=== PATIENT | male | born 2000 | race Caucasian/White ===

== ENCOUNTER 2021-03-05 12:37 | Emergency (ER) | payer OTHER ==
--- OUTSIDE RECORDS SUMMARY | 2021-03-05 12:40 | XMS REPORT | Continuity of Care Document ---
:2000 Author Organization [facility] t Address [address] [place] [address] Care Team Providers Name Role Phone Asked, Pcp Primary Care Physician Unavailable Problems Condition Condition Condition Status Onset Resolution Last Treating Co mments Source Name Details Category Date Date Treatment Clinician Date Behavior Behavior Problem [facility] - concern in concern in Me moria biological biological l child [facility] Bipolar Bipolar Problem Active [facility] affective affective [facility] - disorder, disorder, James luda remission remission l status status [facility] Clinics Depression Depression Problem Active [facility] with with [facility] - anxiety anxiety Memoria l [facility] Insomnia, Insomnia, Problem Active [facility] unspecifie unspecifie Mckenzie kes - d type d type Memoria l [facility] Bipolar Bipolar Problem Active [facility] depression depression Mckenzie kes - Memoria l [facility] Depression Depression Problem [facility] - [facility] Seasonal Seasonal Problem Active [facility] allergies allergies Luke [facility] - [facility] Migraines Migraines Problem [facility] Allergies, Adverse Reactions, Alerts This patient has no known allergies or adverse reactions. Social History Social Habit Start Date Stop Date Quantity Comments Source Sex Assigned At [birth year] [facility] 00:00:00 00:00:00 Smoking Status Start Date Stop Date Source [facility] Ordered Filled Start Stop Current Ordering Indication Dosage Frequency Signature Comments Components Source Medication Medication Date Date Medication? Clinician (SIG) Name Name Trazodone Trazodone 2019-0 Yes Patrizia 1-[address] HCl HCl 4-04 Flores tablets at [facility] - 00:[facility]: bedtime as Memoria 00 needed for l [facility] No known No [facility] Procedures This patient has no known procedures. Plan of Care Planned Activity Planned Date Details Comments Source Future Scheduled Test COVID-19 VACCINE (1) [facility] [code = COVID-19 VACCINE (1)] Future Scheduled Test INFLUENZA VACCINE [facility] [code = INFLUENZA VACCINE] Encounters Start End Encounter Admission Attending Care Care Encounter Source Date/Time Date/Time Type Type Clinicians Facility Department ID 2019-10-12 2019-10-12 [facility] [id number] [facility] 08:55:00 08:55:00 [facility] Medicine Outpati ent Clinics 2019-10-09 2019-10-09 [facility] [id number] 13:20:00 13:20:00 [facility] Medicine Outpati ent Clinics 2019-10-09 2019-10-09 [facility] [id number] 10[facility]59:00 10:59:00 [facility] Medicine Outpati ent Clinics 2018-10-08 2018-10-08 [facility] [id number] [address] 14:40:00 14:40:00 [facility] Medicine Outpati ent Clinics 2018-09-25 2018-09-25 [facility] [id number] [address] 23:46:00 23:46:00 [facility] Medicine Outpati ent Clinics 2018-09-25 2018-09-25 [facility] [id number] 15:20:00 15:20:00 [facility] Medicine Outpati ent Clinics Results This patient has no known results.
--- NOTE | 2021-03-05 13:00 | ER ---
Nurse's Notes [facility] Name: Eduardo Mullins Age: 20 yrs Sex: Male : 2000 Arrival Date: 03/05/2021 Time: 12:39 Bed 23 Private MD: Diagnosis: Dental pain Presentation: 03/05 12:44 Chief complaint: Patient states: Dental pain that began 3-4 days ago. Pt states he has hb a chipped tooth that may be the cause of pain. Coronavirus screen: Client denies travel out of the [place] in the last 14 days. Ebola Screen: Patient denies exposure to infectious person. Patient denies travel to an Ebola-affected area in the 21 days before illness onset. Initial Sepsis Screen: Does the patient meet any 2 criteria? No. Patient's initial sepsis screen is negative. Does the patient have a suspected source of infection? No. Patient's initial sepsis screen is negative. Risk Assessment: Do you want to hurt yourself or someone else? Patient reports no desire to harm self or others. Onset of symptoms was March 01, 2021. 12:44 Method Of Arrival: Ambulatory hb 12:44 Acuity: LEXX 5 hb Triage Assessment: 13:13 General: Appears in no apparent distress. Behavior is calm, cooperative, appropriate kg for age, quiet. Historical: - Allergies: 12:45 No Known Allergies; hb - Home Meds: 12:45 None [Active]; hb - PMHx: 12:45 None; hb - PSHx: 12:45 None; hb - Immunization history:: Client reports having NOT received the Covid vaccine. - Social history:: Smoking status: Reported history of juuling and/or vaping. Screenin:11 Abuse screen: Denies threats or abuse. Denies injuries from another. Nutritional ss screening: No deficits noted. Tuberculosis screening: Never had TB. Fall Risk None identified. Assessment: 13:13 Pain: Complains of pain in mouth and lower right second molar. kg Vital Signs: 12:44 Resp 16; Weight 57.61 kg; Height 5 ft. 10 in. (177.80 cm); Pain 10/10; hb 12:46 BP 143 / 92; Pulse 95; Temp 97.6(O); Pulse Ox 100% on R/A; hb 13:05 BP 137 / 80; Pulse 70; Resp 16; Pulse Ox 98% ; kg 12:44 Body Mass Index 18.22 (57.61 kg, 177.80 cm) hb ED Course: 12:39 Patient arrived in ED. ds1 12:45 Triage completed. hb 12:45 Arm band placed on right wrist. hb 12:54 Nick Tineo NP is PHCP. pm1 12:54 Dagoberto Saenz MD is Attending Physician. pm1 13:11 Patient has correct armband on for positive identification. Bed in low position. Call light in reach. 13:13 Xin Bedolla, RN is Primary Nurse. kg 13:13 No provider procedures requiring assistance completed. Patient did not have IV access kg during this emergency room visit. Administered Medications: 13:11 Drug: [place] (HYDROcodone-acetaminophen) 5 mg-325 mg 1 tabs Route: PO; vg1 13:14 Follow up: Response: No adverse reaction kg Outcome: 13:00 Discharge ordered by MD. pm1 13:14 Discharged to home ambulatory. kg 13:14 Condition: good 13:14 Discharge instructions given to patient, Instructed on discharge instructions, follow up and referral plans. Demonstrated understanding of instructions, follow-up care, medications, Prescriptions given X 2. 13:14 Patient left the ED. kg Signatures: Sydnee Mcgregor ds1 Venessa Santoyo, MERCEDEZ NEWSOME Nick Tineo NP MANAGER PLAY pm1 Alessandra Mckeon RN RN hb Garcia, Victoria, RN RN vg1 Xin Bedolla RN RN kg
--- NOTE | 2021-03-05 13:00 | EDPHYS ---
Physician Documentation [facility] Name: Eduardo Mullins Age: 20 yrs Sex: Male : 2000 Arrival Date: 03/05/2021 Time: 12:39 Bed 23 Private MD: ED Physician Dagoberto Saenz HPI: 03/05 12:57 This 20 yrs old Male presents to ER via Ambulatory with complaints of Dental pm1 Pain -ear pain. 12:57 The patient presents with broken tooth/teeth. The problem is located in the lower right pm1 second molar. Onset: The symptoms/episode began/occurred 4 day(s) ago. Duration: The symptoms are continuous. Modifying factors: The symptoms are alleviated by nothing, the symptoms are aggravated by food. Associated signs and symptoms: Pertinent negatives: fever, inability to eat, swelling. Severity of symptoms: in the emergency department the symptoms are actually worse. The patient has not recently seen a physician, Missed his appointment a few days ago. Has appointment with dentist in 2 days. Patient has taken 3 doses of Augmentin 875 that he obtained from his mother. Historical: - Allergies: 12:45 No Known Allergies; hb - Home Meds: 12:45 None [Active]; hb - PMHx: 12:45 None; hb - PSHx: 12:45 None; hb - Immunization history:: Client reports having NOT received the Covid vaccine. - Social history:: Smoking status: Reported history of juuling and/or vaping. ROS: 13:07 Constitutional: Negative for fever, chills, and weight loss, Cardiovascular: Negative pm1 for chest pain, palpitations, and edema, Respiratory: Negative for shortness of breath, cough, wheezing, and pleuritic chest pain, Abdomen/GI: Negative for abdominal pain, nausea, vomiting, diarrhea, and constipation, MS/Extremity: Negative for injury and deformity, Skin: Negative for injury, rash, and discoloration, Neuro: Negative for headache, weakness, numbness, tingling, and seizure. 13:07 ENT: Positive for dental pain, ear pain. 13:07 All other systems are negative. Exam: 13:07 Constitutional: This is a well developed, well nourished patient who is awake, alert, pm1 and in no acute distress. Head/Face: Normocephalic, atraumatic. 13:07 Skin: Warm, dry with normal turgor. Normal color with no rashes, no lesions, and no evidence of cellulitis. MS/ Extremity: Pulses equal, no cyanosis. Neurovascular intact. Full, normal range of motion. 13:07 Eyes: Exam is negative for acute changes, Periorbital structures: appear normal, no acute changes, Pupils: no acute changes, Extraocular movements: no acute changes, Sclera: no acute changes, icterus, is not appreciated. 13:07 ENT: External ear(s): are unremarkable, Ear canal(s): are normal, TM's: are normal, Nose: no acute changes, Dental exam: dental caries, diffusely, Fracture is present to posterior aspect of right lower second molar. 13:07 Cardiovascular: Exam negative for acute changes, Rate: normal, Rhythm: regular, Pulses: no pulse deficits are appreciated. 13:07 Respiratory: Exam negative for acute changes, respiratory distress, shortness of breath, Breath sounds: are clear throughout. 13:07 Abdomen/GI: Exam negative for acute changes. Vital Signs: 12:44 Resp 16; Weight 57.61 kg; Height 5 ft. 10 in. (177.80 cm); Pain 10/10; hb 12:46 BP 143 / 92; Pulse 95; Temp 97.6(O); Pulse Ox 100% on R/A; hb 13:05 BP 137 / 80; Pulse 70; Resp 16; Pulse Ox 98% ; kg 12:44 Body Mass Index 18.22 (57.61 kg, 177.80 cm) hb MDM: 12:57 Patient medically screened. pm1 12:57 Data reviewed: vital signs. Data interpreted: Pulse oximetry: on room air is 100 %. pm1 Interpretation: normal. Counseling: I had a detailed discussion with the patient and/or guardian regarding: the historical points, exam findings, and any diagnostic results supporting the discharge/admit diagnosis, the need for outpatient follow up, for definitive care, a dentist, to return to the emergency department if symptoms worsen or persist or if there are any questions or concerns that arise at home. 13:05 ED course: PMPAware reviewed. pm1 Administered Medications: 13:11 Drug: [place] (HYDROcodone-acetaminophen) 5 mg-325 mg 1 tabs Route: PO; vg1 13:14 Follow up: Response: No adverse reaction kg Disposition: 16:15 Co-signature as Attending Physician, Dagoberto Saenz MD. rn Disposition Summary: 03/05/21 13:00 Discharge Ordered Location: Home pm1 Problem: new pm1 Symptoms: have improved pm1 Condition: Stable pm1 Diagnosis - Dental pain pm1 Followup: pm1 - With: Emergency Department - When: As needed - Reason: Worsening of condition Followup: pm1 - With: Private Physician - When: 2 - 3 days - Reason: Recheck today's complaints, Continuance of care, Re-evaluation by your physician Discharge Instructions: - Discharge Summary Sheet pm1 - Dental Pain pm1 Forms: - Medication Reconciliation Form pm1 - Thank You Letter pm1 - Antibiotic Education pm1 - Prescription Opioid Use pm1 Prescriptions: - Augmentin 875-125 mg Oral Tablet - take 1 tablet by ORAL route every 12 hours for 10 days; 20 tablet; Refills: 0, pm1 Product Selection Permitted - acetaminophen-codeine 300-15 mg Oral tablet - take 2 tablet by ORAL route every 6 hours As needed as needed; 12 tablet; pm1 Refills: 0, Product Selection Permitted Signatures: Dagoberto Saenz MD MD rn Marinas, Patrick, NP PACKAGING SPECIALIST pm1 Alessandra Mckeon RN RN Coral Bernard RN RN vg1 Xin Bedolla RN kg
[2021-03-05 13:21] VITALS: BP 143/92; TEMP 97.6; O2SAT 100
[2021-03-05] MEDS ORDERED: HYDROCODONE/APAP 5/325 MG TAB ONE (13:34)
== END 2021-03-05 13:14 | disposition home or self-care (01) ==
LOC: ER 12:37
DX: K08.89 Other specified disorders of teeth and supporting structures (principal)
CPT/HCPCS: 99283

== ENCOUNTER 2021-11-29 08:25 | Emergency (ER) | payer OTHER, SELFPAY ==
--- OUTSIDE RECORDS SUMMARY | 2021-11-29 08:28 | XMS REPORT | Continuity of Care Document ---
:2000 Author Organization [facility] t Address [address] [place] [address] Care Team Providers Name Role Phone Asked, Pcp Primary Care Physician Unavailable Trinh Attending Clinician Unavailable Lab, Fam Pob I Attending Clinician Unavailable Elina Coats Attending Clinician Elina SENIOR Attending Clinician Unavailable Doctor Unassigned, Name Attending Clinician Unavailable Payers Payer Name Policy Type Policy Number Effective Date Expiration Date S ource Problems Condition Condition Condition Status Onset Resolution Last Treating Co mments Source Name Details Category Date Date Treatment Clinician Date Convulsion Convulsion Disease Active Overview : Univers s s 3-31 ICD10 ity of 00:00: 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[employer] Allergic Allergic Disease Active Overview: Un vivian rhinitis rhinitis 3-31 ICD10 ity of 00:00: 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[employer] Behavior Behavior Problem Active Commo n causing causing [facility] concern in concern in - [facility] biological biological [facility] Bipolar Bipolar Problem Active Common affective affective Spir it disorder, disorder, - [facility] I remission remission [facility] unspecifie unspecifie Me dical d d Center Depression Depression [facility] anxiety anxiety - [facility] Insomnia, Insomnia, Problem Active Com mon unspecifie unspecifie Sp maria guadalupe d type d type [facility] Bipolar Bipolar Problem Active Common depression depression Sp maria guadalupe [facility] Depression Depression Problem Active C ommon [facility] Seasonal Seasonal Problem Active Commo n allergies allergies Spir it - [facility] Migraines Migraines Problem Active Com mon [facility] Allergies, Adverse Reactions, Alerts Allergy Allergy Status Severity Reaction(s) Onset Inactive Treating Comm ents Source Name Type Date Date Clinician NO KNOWN Drug Active Univers ALLERGIE Class ity of S [facility] Social History Social Habit Start Date Stop Date Quantity Comments Source Tobacco Comment father does Universi ty [facility] Sex Assigned At Universit y of [place] [facility] Branch Alcohol intake 2004-11-27 2004-11-27 [facility] 00:00:00 00:00:00 Medical Branch Smoking Status Start Date Stop Date Source Never smoker [facility] Medications Ordered Filled Start Stop Current Ordering Indication Dosage Frequency Signature Comments Components Source Medication Medication Date Date Medication? Clinician (SIG) Name Name Trazodone Trazodone Yes Patrizia 1-2 C ommon HCl HCl 4-04 Flores tablets at Spirit 00:00: bedtime as - [facility] 00 needed for [facility] aspirin 81 2014-06 Yes 81mg Take 81 mg U nivers mg chewable 1-30 by mouth ity of tablet 19:29: daily. [address] aspirin 81 2014-06 Yes 81mg Take 81 mg U nivers mg chewable 1-30 by mouth ity of tablet 19:29: daily. [address] cyclobenzap 2014-06 Yes 10mg Take 1 Tab Univers rine 1-30 by mouth 3 ity of ([place]) [place]: [place] 10 mg 00 times Medical tablet daily as Branch needed for Muscle Spasms. naproxen 2014-06 Yes 500mg Take 1 Tab Un vivian (NAPROSYN) 1-30 by mouth 2 ity of 500 mg 00:00: (two) [place] tablet 00 times Medical daily with Branch meals. cyclobenzap 2014-06 Yes 10mg Take 1 Tab Univers rine 1-30 by mouth 3 ity of ([place]ER[place]) 00:00: ([place] 10 mg 00 times Medical tablet daily as Branch needed for Muscle Spasms. naproxen 2014-06 Yes 500mg Take 1 Tab Un vivian (NAPROSYN) 1-30 by mouth 2 ity of 500 mg 00:00: (two) [place] tablet 00 times Medical daily with Branch meals. No known No [facility] Procedures This patient has no known procedures. Plan of Care Planned Activity Planned Date Details Comments Source Future Scheduled Test COVID-19 VACCINE (1) [facility] [code = COVID-19 VACCINE (1)] Future Scheduled Test INFLUENZA VACCINE [facility] [code = INFLUENZA VACCINE] Encounters Start End Encounter Admission Attending Care Care Encounter Source Date/Time Date/Time Type Type Clinicians Facility Department ID 2021-07-19 Outpatient TERI Tsang [facility] [id number] Common 12:19:49 Jaimie [id number] [facility] 2020-06-30 2020-06-30 Laboratory Lab, Adc Fam Pob I [facility] [id number] Univers 16:56:24 17:16:24 Only Lester [facility] [id number] ity of [place] [id number] Zeke as Professio [id number] [address] Office Building One 2020-06-30 2020-06-30 Outpatient R NADEEN [facility] [id number] Univers 17:00:00 17:00:00 LETSER matthews o f [facility] 2020-06-30 2020-06-30 Letter Doctor DINO [id number] [place] [address] 00:00:00 00:00:00 (Out) Unassigned, DANILO [id number] ity of [place] [facility] [id number] Zeke as [id number] [address] 2019-10-12 2019-10-12 [facility] [id number] Common 08:55:00 08:55:00 [facility] [address] [facility] 2019-10-09 2019-10-09 [facility] [id number] Common 13:20:00 13:20:00 [facility] [address] [facility] 2019-10-09 2019-10-09 [facility] [id number] Common 10:59:00 10:59:00 [facility] [address] [facility] 2018-10-08 2018-10-08 [facility] [id number] Common 14:40:00 14:40:00 [facility] [address] [facility] 2018-09-25 2018-09-25 Outpatient Chacha Dai [id number] Common 23:46:00 23:46:00 [facility] it [facility] 2018-09-25 2018-09-25 Outpatient Chacha Dai [id number] Common 15:20:00 15:20:00 [facility] it [facility] Results This patient has no known results.
--- NOTE | 2021-11-29 11:07 | ER ---
Nurse's Notes [facility] Name: Eduardo Mullins Age: 21 yrs Sex: Male : 2000 Arrival Date: 11/29/2021 Time: 08:28 Bed 14 Private MD: Diagnosis: Acute upper respiratory infection, unspecified Presentation: 11/29 08:35 Acuity: LEXX 4 ll1 08:36 Chief complaint: Patient states: Feeling ill, sleepy, fatigues, not eating, slight ll1 cough, CORONADO cold sweats for 2 days. Coronavirus screen: Vaccine status: Patient reports being unvaccinated. Client denies travel out of the [place] in the last 14 days. fatigue, fever, headache, muscle pain, Client presents with at least one sign or symptom that may indicate coronavirus-19. Standard/surgical mask placed on the client. Ebola Screen: Patient denies travel to an Ebola-affected area in the 21 days before illness onset. Initial Sepsis Screen: Does the patient meet any 2 criteria? No. Patient's initial sepsis screen is negative. Does the patient have a suspected source of infection? Yes: Productive cough/pneumonia. Risk Assessment: Do you want to hurt yourself or someone else? Patient reports no desire to harm self or others. Onset of symptoms was November 27, 2021. 08:36 Method Of Arrival: Ambulatory ll1 Triage Assessment: 08:36 General: Appears ill, Behavior is cooperative, appropriate for age. Pain: Complains of ll1 pain in head Pain currently is 5 out of 10 on a pain scale. Pain began 2-3 days ago. Also complains of decreased appetite. EENT: Reports nasal congestion. Neuro: Reports headache. Respiratory: Reports cough that is. 09:02 Headache History: Denies prior headaches. Pain: Complains of pain in head Pain jg9 currently is 7 out of 10 on a pain scale. Historical: - Allergies: 08:35 No Known Allergies; ll1 - PMHx: 08:35 None; ll1 - PSHx: 08:35 None; ll1 - Immunization history:: Client reports having NOT received the Covid vaccine. - Social history:: Smoking status: Reported history of juuling and/or vaping. Screenin:02 Abuse screen: Denies threats or abuse. Denies injuries from another. Nutritional jg9 screening: No deficits noted. Tuberculosis screening: No symptoms or risk factors identified. Fall Risk None identified. Assessment: 09:02 Reassessment: No changes from previously documented assessment. Patient and/or family jg9 updated on plan of care and expected duration. Pain level reassessed. Patient is alert, oriented x 3, equal unlabored respirations, skin warm/dry/pink. 09:41 Reassessment: No changes from previously documented assessment. Patient and/or family jg9 updated on plan of care and expected duration. Pain level reassessed. Patient is alert, oriented x 3, equal unlabored respirations, skin warm/dry/pink. Pain: Complains of pain in head Pain currently is 7 out of 10 on a pain scale. Vital Signs: 08:36 BP 126 / 89; Pulse 68; Resp 17; Temp 98.6; Pulse Ox 96% on R/A; Weight 61.23 kg; Height ll1 5 ft. 10 in. (177.80 cm); Pain 5/10; 08:45 BP 119 / 79; Pulse 93; Resp 16 S; Pulse Ox 100% on R/A; jg9 08:36 Body Mass Index 19.37 (61.23 kg, 177.80 cm) ll1 ED Course: 08:28 Patient arrived in ED. mr 08:30 Helen Nichols, [place] [facility] kb 08:30 Roman Alex DO is Attending Physician. kb 08:30 Velia Yancey, RN is Primary Nurse. jg9 08:35 Triage completed. ll1 08:35 Arm band placed on Patient placed in an exam room, on a stretcher. ll1 09:03 Pt visited by significant other. jg9 09:03 Patient has correct armband on for positive identification. Bed in low position. Call jg9 light in reach. 09:41 No apparent distress. Resting quietly. Awaiting lab results, Awaiting disposition. jg9 11:18 No provider procedures requiring assistance completed. Patient did not have IV access ss during this emergency room visit. Administered Medications: No medications were administered Medication: 09:03 VIS not applicable for this client. jg9 Outcome: 11:07 Discharge ordered by . kb 11:18 Discharged to home ambulatory. ss 11:18 Condition: good 11:18 Discharge instructions given to patient, Instructed on discharge instructions, follow up and referral plans. Demonstrated understanding of instructions, follow-up care. 11:20 Patient left the ED. Signatures: Helen Nichols, [place] LOMELI-Michaela Aguiar mr Venessa Santoyo, RN RN ss Ankita Aragon RN RN ll1 Velia Yancey RN RN jg9
--- NOTE | 2021-11-29 11:07 | EDPHYS ---
Physician Documentation [facility] Name: Eduardo Mullins Age: 21 yrs Sex: Male : 2000 Arrival Date: 11/29/2021 Time: 08:28 Bed 14 Private MD: ED Physician Roman Alex HPI: 11/29 09:15 This 21 yrs old Male presents to ER via Ambulatory with complaints of Headache, Sore kb Throat. 09:15 The patient or guardian reports cough, that is intermittent, described as mild, flu kb symptoms, low-grade fever, myalgias. Onset: The symptoms/episode began/occurred 2 day(s) ago. Severity of symptoms: At their worst the symptoms were moderate, in the emergency department the symptoms are unchanged. Modifying factors: The symptoms are alleviated by nothing, the symptoms are aggravated by nothing. Associated signs and symptoms: Pertinent positives: rhinorrhea, sore throat. The patient has not experienced similar symptoms in the past. The patient has not recently seen a physician. Pt reports slight cough, bodyaches, chills, sweating, sore throat, and congestion for 2 days. . Historical: - Allergies: 08:35 No Known Allergies; ll1 - PMHx: 08:35 None; ll1 - PSHx: 08:35 None; ll1 - Immunization history:: Client reports having NOT received the Covid vaccine. - Social history:: Smoking status: Reported history of juuling and/or vaping. ROS: 09:13 Abdomen/GI: Negative for abdominal pain, nausea, vomiting, diarrhea, and constipation. kb 09:13 Constitutional: Positive for body aches, chills, fatigue, fever, malaise. 09:13 ENT: Positive for sinus congestion, sore throat. 09:13 Respiratory: Positive for cough, Negative for dyspnea on exertion, hemoptysis, orthopnea, pleurisy, shortness of breath, sputum production, wheezing. 09:13 Neuro: Positive for headache. 09:13 All other systems are negative. Exam: 09:14 Constitutional: This is a well developed, well nourished patient who is awake, alert, kb and in no acute distress. Head/Face: Normocephalic, atraumatic. Cardiovascular: Regular rate and rhythm with a normal S1 and S2. No gallops, murmurs, or rubs. No pulse deficits. Respiratory: Respirations even and unlabored. No increased work of breathing. Talking in full sentences Skin: Warm, dry with normal turgor. Normal color. MS/ Extremity: Pulses equal, no cyanosis. Neurovascular intact. Full, normal range of motion. Neuro: Awake and alert, GCS 15, oriented to person, place, time, and situation. Moves all extremities. Normal gait. Psych: Awake, alert, with orientation to person, place and time. Behavior, mood, and affect are within normal limits. 09:14 ENT: External ear(s): are unremarkable, Ear canal(s): are normal, TM's: are normal, Nose: is normal, Mouth: is normal, Posterior pharynx: Airway: normal, erythema, that is moderate. Vital Signs: 08:36 BP 126 / 89; Pulse 68; Resp 17; Temp 98.6; Pulse Ox 96% on R/A; Weight 61.23 kg; Height ll1 5 ft. 10 in. (177.80 cm); Pain 5/10; 08:45 BP 119 / 79; Pulse 93; Resp 16 S; Pulse Ox 100% on R/A; jg9 08:36 Body Mass Index 19.37 (61.23 kg, 177.80 cm) ll1 MDM: 08:30 Patient medically screened. kb 09:14 Data reviewed: vital signs, nurses notes. Data interpreted: Pulse oximetry: on room air kb is 100 %. Interpretation: normal. 11:07 Counseling: I had a detailed discussion with the patient and/or guardian regarding: the kb historical points, exam findings, and any diagnostic results supporting the discharge/admit diagnosis, lab results, the need for outpatient follow up, a family practitioner, to return to the emergency department if symptoms worsen or persist or if there are any questions or concerns that arise at home. 11/29 08:33 Order name: Flu; Complete Time: 09:41 kb 11/29 08:33 Order name: COVID-19 SARS RT PCR (Document "Date of Onset" if Symptomatic); Complete kb Time: 11:06 08 08:33 Order name: Strep; Complete Time: 09:41 kb 11/29 09:41 Order name: Throat Culture EDMS Administered Medications: No medications were administered Disposition: 22:25 Co-signature as Attending Physician, Roman Alex DO I was immediately available on-site ms3 in the Emergency Department for consultation in the care of the patient. . Disposition Summary: 11/29/21 11:07 Discharge Ordered Location: Home kb Condition: Stable kb Diagnosis - Acute upper respiratory infection, unspecified kb Followup: kb - With: Emergency Department - When: As needed - Reason: Worsening of condition Followup: kb - With: Private Physician - When: 2 - 3 days - Reason: Recheck today's complaints, Continuance of care, Re-evaluation by your physician Discharge Instructions: - Discharge Summary Sheet kb - Upper Respiratory Infection, Adult, [id number] kb - Viral Respiratory Infection, [id number] kb Forms: - Medication Reconciliation Form kb - Thank You Letter kb - Antibiotic Education kb - Prescription Opioid Use kb - Work release form ss Signatures: Dispatcher [employer] Helen Guzman, DAYTON LOMELI-Ankita Hammond RN RN ll1 Roman Alex DO DO ms3
[2021-11-29 11:25] VITALS: TEMP 98.6
[2021-11-29 11:26] VITALS: BP 119/79; O2SAT 100
== END 2021-11-29 11:20 | disposition home or self-care (01) ==
LOC: ER 08:25
DX: J06.9 Acute upper respiratory infection, unspecified (principal); R05.9 Cough, unspecified; Z20.822 Contact with and (suspected) exposure to COVID-19
CPT/HCPCS: 87070; 87081; 87804; 99281; U0003

== ENCOUNTER 2022-02-02 13:50 | Emergency (ER) | payer SELFPAY ==
--- OUTSIDE RECORDS SUMMARY | 2022-02-02 13:53 | XMS REPORT | Continuity of Care Document ---
:[address] [facility] t Address [address] [place] [address] Care Team Providers Name Role Phone Asked, No Pcp Primary Care Physician Unavailable Jaimie Tsang Attending Clinician Unavailable Lab, Adc Fam Pob I Attending Clinician Unavailable Lester Coats Attending Clinician LESTER SENIOR Attending Clinician Unavailable Doctor Unassigned, [place] Attending Clinician Unavailable Payers Payer Name Policy Type Policy Number Effective Date Expiration Date S ource Problems Condition Condition Condition Status Onset Resolution Last Treating Co mments Source Name Details Category Date Date Treatment Clinician Date Convulsion Convulsion Disease Active Overview : Univers s s 3- ICD10 ity of 00:00: Diagnosis [place] [facility] [employer] Allergic Allergic Disease Active Overview: Un vivian rhinitis rhinitis 09-21 ICD10 ity of 00:00: Diagnosis [employer] Behavior Behavior Problem Active Commo n causing causing Spirit concern in concern in - [facility] biological biological [facility] Bipolar Bipolar Problem Active Common affective affective Spir it disorder, disorder, - [facility] I remission remission [facility] unspecifie unspecifie Me dical d d Center Depression Depression Problem Active C ommon with with Spirit anxiety anxiety - [facility] Insomnia, Insomnia, Problem Active Com mon unspecifie unspecifie Sp maria guadalupe d type d type [facility] Bipolar Bipolar Problem Active Common depression depression Sp maria guadalupe [facility] Depression Depression Problem Active C ommon Spirit [facility] Seasonal Seasonal Problem Active Commo n allergies allergies Spir it [facility] Migraines Migraines Problem Active Com mon Spirit [facility] Allergies, Adverse Reactions, Alerts Allergy Allergy Status Severity Reaction(s) Onset Inactive Treating Comm ents Source Name Type Date Date Clinician NO KNOWN Drug Active Univers ALLERGIE Class ity of S [facility] Social History Social Habit Start Date Stop Date Quantity Comments Source Tobacco Comment father does Universi ty [facility] Sex Assigned At Universit y [facility] Alcohol intake 2004-11-27 2004-11-27 [facility] 00:00:00 00:00:00 [facility] Branch Smoking Status Start Date Stop Date Source Never smoker [facility] Medications Ordered Filled Start Stop Current Ordering Indication Dosage Frequency Signature Comments Components Source Medication Medication Date Date Medication? Clinician (SIG) Name Name Trazodone Trazodone 2019- Yes Patrizia 1-2 C ommon HCl HCl 4-04 Flores tablets at Spirit 00:00: bedtime as - [facility] 00 needed for [facility] aspirin 81 2014-06 Yes 81mg Take 81 mg U nivers mg chewable 1-30 by mouth ity of tablet 19:29: daily. [address] aspirin 81 2014-06 Yes 81mg Take 81 mg U nivers mg chewable 1-30 by mouth ity of tablet 19:29: daily. [address] cyclobenzap 2014-06 Yes 10mg Take 1 [...] Source Future Scheduled Test COVID-19 VACCINE (1) [facility] [code = COVID-19 VACCINE (1)] Future Scheduled Test INFLUENZA VACCINE [facility] [code = INFLUENZA VACCINE] Encounters Start End Encounter Admission Attending Care Care Encounter Source Date/Time Date/Time Type Type Clinicians Facility Department ID 2021-07-19 Outpatient TERI Tsang [facility] [id number] Common 12:19:49 Jaimie [id number] [facility] 2020-06-30 2020-06-30 Laboratory Lab, Adc Fam Pob I [facility] [id number] Univers 16:56:24 17:16:24 Only NadeenLester whitney [facility] [id number] ity of [place] [id number] Zeke as Professio [id number] [address] Office Building One 2020-06-30 2020-06-30 Outpatient R NADEEN [facility] [id number] Univers 17:00:00 17:00:00 LESTER matthews o f [facility] 2020-06-30 2020-06-30 Letter Doctor DINO [id number] Univers 00:00:00 00:00:00 (Out) Unassigned, DANILO [id number] ity of [place] [facility] [id number] Zeke as [id number] [address] 2019-10-12 2019-10-12 [facility] [id number] Common 08:55:00 08:55:00 [facility] [address] [facility] 2019-10-09 2019-10-09 [facility] [id number] Common 13:20:00 13:20:00 [facility] [address] [facility] 2019-10-09 2019-10-09 [facility] [id number] Common 10:59:00 10:59:00 [facility] [address] [facility] 2018-10-08 2018-10-08 [facility] [id number] Common 14:40:00 14:40:00 [facility] Spir it [facility] 2018-09-25 2018-09-25 Outpatient Chacha Dai [id number] Common 23:46:00 23:46:00 [facility] 2018-09-25 2018-09-25 Outpatient Chacha Dai [id number] Common 15:20:00 15:20:00 [facility] Results This patient has no known results.
--- NOTE | 2022-02-02 14:19 | ER ---
Nurse's Notes [facility] Name: Eduardo Mullins Age: 21 yrs Sex: Male : 2000 Arrival Date: 02/02/2022 Time: 13:50 Bed 12 Private MD: Diagnosis: Dental caries, unspecified Presentation: 02/02 14:01 Chief complaint: Patient states: pt presents with swelling and pain to right side of [facility] face due to abscess that has been ongoing for a year; pt states he was supposed to get root canal a year ago but couldn't afford it. Coronavirus screen: Vaccine status: Patient reports being unvaccinated. Client denies travel out of the [place] in the last 14 days. Ebola Screen: Patient negative for fever greater than or equal to 101.5 degrees Fahrenheit, and additional compatible Ebola Virus Disease symptoms Patient denies exposure to infectious person. Patient denies travel to an Ebola-affected area in the 21 days before illness onset. Initial Sepsis Screen: Does the patient meet any 2 criteria? No. Patient's initial sepsis screen is negative. Does the patient have a suspected source of infection? No. Patient's initial sepsis screen is negative. Risk Assessment: Do you want to hurt yourself or someone else? Patient reports no desire to harm self or others. Onset of symptoms was January 2021. 14:01 Method Of Arrival: Ambulatory [facility] 14:01 Acuity: LEXX 4 [facility] Triage Assessment: 14:04 General: Appears uncomfortable, slender, Behavior is calm, cooperative, appropriate for [facility] age. Pain: Complains of pain in face. EENT: Reports pain in right cheek, right ear, mouth, chin, right muslim and right jaw when swallowing. Historical: - Allergies: 14:04 No Known Allergies; [facility] - Home Meds: 14:04 None [Active]; [facility] - Immunization history:: Adult Immunizations up to date. - Social history:: Smoking status: Patient reports the use of cigarette tobacco products, Patient/guardian denies using tobacco, Stopped _ months ago 4. Screenin:05 Abuse screen: Denies threats or abuse. Denies injuries from another. Nutritional [facility] screening: No deficits noted. Tuberculosis screening: No symptoms or risk factors identified. Fall Risk None identified. Assessment: 14:25 General: Appears in no apparent distress. comfortable, Behavior is calm, cooperative. ss Pain: Complains of pain in right jaw and right muslim and right ear and right cheek Pain currently is 10 out of 10 on a pain scale. Neuro: Level of Consciousness is awake, alert, obeys commands, Oriented to person, place, time, situation. Respiratory: Airway is patent Respiratory effort is even, unlabored, Respiratory pattern is regular, symmetrical. EENT: Poor dentition noted. Derm: Skin is pink, warm \T\ dry. normal. Vital Signs: 14:01 BP 116 / 84; Pulse 83; Resp 18; Temp 97.5; Pulse Ox 100% ; Weight 61.23 kg; Height 5 [facility] ft. 10 in. (177.80 cm); Pain 10/10; 14:01 Body Mass Index 19.37 (61.23 kg, 177.80 cm) [facility] ED Course: 13:50 Patient arrived in ED. 4 13:55 Dalton [facility] 13:55 Mac Abdi MD is Attending Physician. [facility] 14:04 Triage completed. [facility] 14:04 Arm band placed on right wrist. [facility] 14:25 Venessa Santoyo, MERCEDEZ is Primary Nurse. 14:25 Patient has correct armband on for positive identification. 14:25 No provider procedures requiring assistance completed. Patient did not have IV access ss during this emergency room visit. Administered Medications: No medications were administered Medication: 14:25 VIS not applicable for this client. ss Outcome: 14:18 Discharge ordered by . [facility] 14:25 Discharged to home ambulatory. 14:25 Condition: good 14:25 Discharge instructions given to patient, Instructed on discharge instructions, follow up and referral plans. medication usage, Demonstrated understanding of instructions, follow-up care, medications, Prescriptions given X 2. 14:28 Patient left the ED. Signatures: Dalton Fiore PA PA jmm Smirch, Shelby, RN RN ss Garcia, Rubi 4 Marly Diaz RN RN [facility]
--- NOTE | 2022-02-02 14:19 | EDPHYS ---
Physician Documentation [facility] Name: Eduardo Mullins Age: 21 yrs Sex: Male : 2000 Arrival Date: 02/02/2022 Time: 13:50 Bed 12 Private MD: ED Physician Mac Abdi HPI: 02/02 14:10 This 21 yrs old Male presents to ER via Ambulatory with complaints of Toothache. [facility] 14:10 The patient presents with pain. Onset: The symptoms/episode began/occurred gradually, 2 jmm day(s) ago. Duration: The symptoms are continuous, and are steadily getting worse. Modifying factors: The symptoms are alleviated by nothing, the symptoms are aggravated by nothing. Associated signs and symptoms: Pertinent positives: pain, redness in area. It is unknown whether or not the patient has had similar symptoms in the past. Historical: - Allergies: 14:04 No Known Allergies; [facility] - Home Meds: 14:04 None [Active]; [facility] - Immunization history:: Adult Immunizations up to date. - Social history:: Smoking status: Patient reports the use of cigarette tobacco products, Patient/guardian denies using tobacco, Stopped _ months ago 4. ROS: 14:10 Constitutional: Negative for fever, chills, and weight loss. jm 14:10 ENT: Positive for dental pain. 14:10 All other systems are negative. Exam: 14:10 Constitutional: This is a well developed, well nourished patient who is awake, alert, jmm and in no acute distress. Head/Face: atraumatic. Eyes: EOMI, no conjunctival erythema appreciated 14:10 Chest/axilla: Normal chest wall appearance and motion. Cardiovascular: Regular rate and rhythm. No edema appreciated Respiratory: Normal respirations, no respiratory distress appreciated Abdomen/GI: Non distended Back: Normal ROM Skin: General appearance color normal MS/ Extremity: Moves all extremities, no obvious deformities appreciated, no edema noted to the lower extremities Neuro: Awake and alert Psych: Behavior is normal, Mood is normal, Patient is cooperative and pleasant 14:10 ENT: Dental exam: gum swelling, that is moderate, specifically in the lower right first molar (#30) and lower right second molar (#31), No submandibular swelling appreciated. Vital Signs: 14:01 BP 116 / 84; Pulse 83; Resp 18; Temp 97.5; Pulse Ox 100% ; Weight 61.23 kg; Height 5 [facility] ft. 10 in. (177.80 cm); Pain 10/; 14:01 Body Mass Index 19.37 (61.23 kg, 177.80 cm) [facility] MDM: 14:10 Patient medically screened. [facility] 14:18 Data reviewed: vital signs, nurses notes. Counseling: I had a detailed discussion with savanah the patient and/or guardian regarding: the historical points, exam findings, and any diagnostic results supporting the discharge/admit diagnosis, the need for outpatient follow up, to return to the emergency department if symptoms worsen or persist or if there are any questions or concerns that arise at home. 14:18 ED course: Patient is alert nontoxic in appearance in the ED. I do not currently [facility] suspect North's angina or peritonsillar abscess or retropharyngeal abscess at this time. Patient advised follow-up with dentist and otherwise given strict return precautions. Patient understood and agrees to plan of care.. Administered Medications: No medications were administered Disposition: 15:17 Attestation: The patient's history, exam findings, diagnostics, and a summary of any [facility] interventions or procedures was reviewed in detail with Dalton ELDER. Disposition Summary: 02/02/22 14:18 Discharge Ordered Location: Home [facility] Condition: Stable [facility] Diagnosis - Dental caries, unspecified [facility] Followup: [facility] - With: Private Physician - When: 2 - 3 days - Reason: Recheck today's complaints, Continuance of care, Re-evaluation by your physician Discharge Instructions: - Discharge Summary Sheet [facility] - Dental Caries, Adult [facility] Forms: - Medication Reconciliation Form [facility] - Thank You Letter [facility] - Antibiotic Education [facility] - Prescription Opioid Use [facility] Prescriptions: - penicillin V potassium 500 mg Oral tablet - take 1 tablet by ORAL route 4 times per day; 40 tablet; Refills: 0, Product [facility] Selection Permitted - Diclofenac Sodium 75 mg Oral Tablet Sustained Release - take 1 tablet by ORAL route 2 times per day; 30 tablet; Refills: 0, Product [facility] Selection Permitted Signatures: Dalton Fiore PA PA jm Marly Diaz RN RN 5 Mac Abdi MD MD [id number]
[2022-02-02 14:57] VITALS: BP 116/84; TEMP 97.5; O2SAT 100
== END 2022-02-02 14:28 | disposition home or self-care (01) ==
LOC: ER 13:50
DX: K02.9 Dental caries, unspecified (principal)
CPT/HCPCS: 99282

== ENCOUNTER 2022-03-14 23:12 | Emergency (ER) | payer SELFPAY ==
--- OUTSIDE RECORDS SUMMARY | 2022-03-14 23:14 | XMS REPORT | Continuity of Care Document ---
:2000 Author Organization [facility] t Address [address] [place] [address] Care Team Providers Name Role Phone Jaimie Tsagn Attending Clinician Unavailable Problems Condition Condition Condition Status Onset Resolution Last Treating Co mments Source Name Details Category Date Date Treatment Clinician Date Behavior Behavior Problem Active Commo n causing causing Spirit concern in concern in - [facility] biological biological [facility] Bipolar Bipolar Problem Active Common affective affective Spir it disorder, disorder, - [facility] I remission remission St status status [facility] unspecifie unspecifie Me dical d d [place] Depression Depression Problem Active C ommon with with Spirit anxiety anxiety [facility] Insomnia, Insomnia, Problem Active Com mon unspecifie unspecifie Sp maria guadalupe d type d type [facility] Bipolar Bipolar Problem Active Common depression depression Sp maria guadalupe [facility] Depression Depression Problem Active C ommon [facility] Seasonal Seasonal Problem Active Commo n allergies allergies Spir it [facility] Migraines Migraines Problem Active Com mon [facility] Allergies, Adverse Reactions, Alerts This patient has no known allergies or adverse reactions. Medications Ordered Filled Start Stop Current Ordering Indication Dosage Frequency Signature Comments Components Source Medication Medication Date Date Medication? Clinician (SIG) Name Name Trazodone Trazodone 2019-0 Yes Patrizia 1-2 C ommon HCl HCl 4-04 Flores tablets at Spirit 00:00: bedtime as - [facility] 00 needed for [facility] Procedures This patient has no known procedures. Encounters Start End Encounter Admission Attending Care Care Encounter Source Date/Time Date/Time Type Type Clinicians Facility Department ID 2021-07-19 Outpatient TERI Tsang MARGARITA [id number] Common 12:19:49 Jaimie [id number] [facility] 2019-10-12 2019-10-12 [facility] [id number] Common 08:55:00 08:55:00 t [facility] [address] [facility] 2019-10-09 2019-10-09 [facility] [id number] Common 13:20:00 13:20:00 t [facility] [address] [facility] 2019-10-09 2019-10-09 Out[facility] [id number] Common 10:59:00 10:59:00 t [facility] [address] [facility] 2018-10-08 2018-10-08 Out[facility] [id number] Common 14:40:00 14:40:00 t [facility] [address] [facility] 2018-09-25 2018-09-25 [facility] [id number] Common 23:46:00 23:46:00 t [facility] [address] [facility] 2018-09-25 2018-09-25 Out[facility] [id number] Common 15:20:00 15:20:00 t [facility] [address] [facility] Results This patient has no known results.
[2022-03-14] MEDS ORDERED: HYDROCODONE/APAP 7.5/325 MG TAB ONE (23:47)
[2022-03-14] MEDS ORDERED: IBUPROFEN 400 MG TAB ONE (23:48)
[2022-03-14] MEDS ORDERED: IBUPROFEN 200 MG TAB PO ONE (23:48)
--- NOTE | 2022-03-15 00:56 | EDPHYS ---
Physician Documentation [facility] Name: Eduardo Mullins Age: 21 yrs Sex: Male : 2000 Arrival Date: 03/14/2022 Time: 23:13 Bed 27 Private MD: ED Physician Roman Alex HPI: 03/14 23:35 This 21 yrs old Male presents to ER via Ambulatory with complaints of Hand Injury. cp 23:35 The patient or guardian reports injury, pain. The complaints affect the right fifth cp metacarpal head. Context: resulted from direct blow from baseball. Onset: The symptoms/episode began/occurred today. 23:35 Associated signs and symptoms: The patient has no apparent associated signs or symptoms.cp Historical: - Home Meds: 23:21 None [Active]; ld1 - PMHx: 23:21 None; ld1 - PSHx: 23:21 None; ld1 - Immunization history:: Adult Immunizations up to date, Client reports having NOT received the Covid vaccine. - Social history:: Smoking status: Patient denies any tobacco usage or history of. Patient/guardian denies using alcohol. ROS: 23:40 MS/extremity: Positive for pain, swelling, tenderness, of the right fifth finger and cp fifth metacarpal, Negative for decreased range of motion, deformity, paresthesias. 23:40 Neck: Negative for pain with movement, pain at rest, stiffness. cp 23:40 Back: Negative for pain at rest, pain with movement. 23:40 Neuro: Negative for headache, numbness, weakness. 23:40 All other systems are negative. Exam: 23:45 Constitutional: The patient appears in no acute distress, alert, awake, well developed, cp well nourished, uncomfortable. 23:45 Head/Face: Normocephalic, atraumatic. cp 23:45 Chest/axilla: Inspection: normal. 23:45 Cardiovascular: Rate: normal, Pulses: Pulses are 2+ in right radial artery. 23:45 Respiratory: the patient does not display signs of respiratory distress, Respirations: normal, no use of accessory muscles, no retractions, labored breathing, is not present. 23:45 Musculoskeletal/extremity: Extremities: grossly normal except: noted in the right fifth finger and fifth metacarpal: swelling, tenderness, There is no evidence of overlying skin intact with no open wounds, decreased ROM, deformity, ROM: full active range of motion, in the right hand, Perfusion: the extremity is normally perfused throughout, with brisk capillary refill, the right hand Sensation intact. 23:45 Neuro: Orientation: to person, place \T\ time. Mentation: is normal. Vital Signs: 23:20 BP 154 / 84; Pulse 94; Resp 18; Temp 98.6(TE); Pulse Ox 98% on R/A; Weight 61.23 kg; ld1 Height 5 ft. 10 in. (177.80 cm); Pain 5/10; 23:45 BP 142 / 75; Pulse 92; Resp 16; Pulse Ox 100% on R/A; kd3 23:20 Body Mass Index 19.37 (61.23 kg, 177.80 cm) ld1 Procedures: 03/15 01:15 Splinting: Splint applied to right hand using orthoglass ulna gutter type. applied by cp nurse. Examined by me, post splint application: neurovascular intact, Patient tolerated well. MDM: 03/14 23:36 Patient medically screened. 03/15 00:00 Differential diagnosis: dislocation, closed fracture, contusion. cp 00:55 Data reviewed: vital signs, nurses notes, radiologic studies, plain films. 03/14 23:22 Order name: XRAY Hand RIGHT 3 View ld1 Administered Medications: 03/14 23:45 Drug: Ibuprofen 800 mg Route: PO; 3 03/15 01:12 Follow up: Response: No adverse reaction; Pain is decreased 3 03/14 23:45 Drug: Hydrocodone-Acetaminophen (7.5 mg-325 mg) 1 tabs Route: PO; kd3 03/15 01:12 Follow up: Response: No adverse reaction; Pain is decreased kd3 Disposition Summary: 03/15/22 00:55 Discharge Ordered Location: Home cp Problem: new cp Symptoms: have improved cp Condition: Stable cp Diagnosis - Contusion of right hand cp Followup: cp - With: Rm Way MD - When: 1 week - Reason: pain continues Discharge Instructions: - Discharge Summary Sheet cp - Hand Contusion cp Forms: - Medication Reconciliation Form cp - Thank You Letter cp - Antibiotic Education cp - Prescription Opioid Use cp Prescriptions: - Ibuprofen 800 mg Oral Tablet - take 1 tablet by ORAL route every 8 hours As needed take with food; 30 tablet; cp Refills: 0, Product Selection Permitted Addendum: 03/16/2022 03:14 Co-signature as Attending Physician, Roman Alex DO I was immediately available onsite m s3 in the emergency department for consultation in the care of the patient. Signatures: Dispatcher [employer] EDVA Giovany Rico PA PA cp Sims, Marcus, DO DO ms3 Roma Sanchez, RN RN ld1 Tamiko Felipe RN RN kd3
--- NOTE | 2022-03-15 00:56 | ER ---
Nurse's Notes [facility] Name: Eduardo Mullins Age: 21 yrs Sex: Male : 2000 Arrival Date: 03/14/2022 Time: 23:13 Bed 27 Private MD: Diagnosis: Contusion of right hand Presentation: 03/14 23:20 Chief complaint: Patient states: I was playing baseball tonight - baseball slammed into ld1 my right pinky finger. Coronavirus screen: At this time, the client does not indicate any symptoms associated with coronavirus-19. Ebola Screen: No symptoms or risks identified at this time. Initial Sepsis Screen: Does the patient meet any 2 criteria? No. Patient's initial sepsis screen is negative. Does the patient have a suspected source of infection? No. Patient's initial sepsis screen is negative. Risk Assessment: Do you want to hurt yourself or someone else? Patient reports no desire to harm self or others. Onset of symptoms was March 14, 2022. 23:20 Method Of Arrival: Ambulatory ld1 23:20 Acuity: LEXX 4 ld1 Triage Assessment: 23:21 General: Appears in no apparent distress. comfortable, Behavior is calm, cooperative, ld1 appropriate for age. Pain: Complains of pain in dorsal aspect of distal phalanx of right little finger, dorsal aspect of middle phalanx of right little finger, dorsal aspect of proximal phalanx of right little finger and right little fingernail Pain does not radiate. Pain currently is 5 out of 10 on a pain scale. at worst was 10 out of 10 on a pain scale. Quality of pain is described as throbbing, Pain began suddenly, Is continuous. EENT: No signs and/or symptoms were reported regarding the EENT system. Neuro: Level of Consciousness is awake, alert, obeys commands, Oriented to person, place, time, situation. Cardiovascular: Capillary refill < 3 seconds Patient's skin is warm and dry. Respiratory: Airway is patent Respiratory effort is even, unlabored. GI: Abdomen is flat, non-distended. : No signs and/or symptoms were reported regarding the genitourinary system. Derm: No signs and/or symptoms reported regarding the dermatologic system. Musculoskeletal: Reports pain in right hand. Historical: - Home Meds: 23:21 None [Active]; ld1 - PMHx: 23:21 None; ld1 - PSHx: 23:21 None; ld1 - Immunization history:: Adult Immunizations up to date, Client reports having NOT received the Covid vaccine. - Social history:: Smoking status: Patient denies any tobacco usage or history of. Patient/guardian denies using alcohol. Screenin:46 Abuse screen: Denies threats or abuse. Denies injuries from another. Nutritional kd3 screening: No deficits noted. Tuberculosis screening: No symptoms or risk factors identified. Fall Risk None identified. Assessment: 23:45 General: Appears in no apparent distress. Behavior is calm, cooperative. Neuro: Level kd3 of Consciousness is awake, alert, obeys commands, Oriented to person, place, time, situation. Respiratory: Airway is patent Trachea midline Respiratory effort is even, unlabored, Respiratory pattern is regular, symmetrical. Injury Description: Bruise sustained to right hand. Vital Signs: 23:20 BP 154 / 84; Pulse 94; Resp 18; Temp 98.6(TE); Pulse Ox 98% on R/A; Weight 61.23 kg; ld1 Height 5 ft. 10 in. (177.80 cm); Pain 5/10; 23:45 BP 142 / 75; Pulse 92; Resp 16; Pulse Ox 100% on R/A; kd3 23:20 Body Mass Index 19.37 (61.23 kg, 177.80 cm) ld1 ED Course: 23:13 Patient arrived in ED. bp1 23:21 Triage completed. ld1 23:21 Arm band placed on right wrist. ld1 23:23 Giovany Rico PA is PHCP. cp 23:23 Roman Alex DO is Attending Physician. cp 23:35 Tamiko Felipe, MERCEDEZ is Primary Nurse. kd3 23:46 Patient has correct armband on for positive identification. kd3 03/15 00:12 XRAY Hand RIGHT 3 View In Process Unspecified. EDMS 00:[address] MD is Referral Physician. cp 01:11 No provider procedures requiring assistance completed. Patient did not have IV access kd3 during this emergency room visit. Administered Medications: 03/14 23:45 Drug: Ibuprofen 800 mg Route: PO; kd3 03/15 01:12 Follow up: Response: No adverse reaction; Pain is decreased kd3 03/14 23:45 Drug: Hydrocodone-Acetaminophen (7.5 mg-325 mg) 1 tabs Route: PO; kd3 03/15 01:12 Follow up: Response: No adverse reaction; Pain is decreased kd3 Medication: 03/14 23:46 VIS not applicable for this client. kd3 Outcome: 03/15 00:55 Discharge ordered by . sapphire 01:11 Discharged to home ambulatory. kd3 01:11 Condition: stable 01:11 Discharge instructions given to patient, family, Instructed on discharge instructions, follow up and referral plans. Demonstrated understanding of instructions, follow-up care, medications, Prescriptions given X 1. 01:12 Patient left the ED. kd3 Signatures: Dispatcher [employer] EDMS Giovany Rico PA PA cp Paniauga, Brittany bp1 Dibbern, Lauren, RN RN ld1 Tamiko Felipe RN RN kd3
--- NOTE | 2022-03-15 14:17 | RAD REPORT ---
EXAM DESCRIPTION: Hand Right 3 View CLINICAL HISTORY: 21 years Male PAIN TECHNIQUE: Three views of the right hand are provided. COMPARISON: No prior exams provided for comparison. FINDINGS: There is mild soft tissue swelling about the fifth metacarpophalangeal joint without soft tissue gas or foreign body. No acute right hand fracture or dislocation. Visualized joint spaces are preserved. No aggressive osseous lesion. IMPRESSION: Mild soft tissue swelling about the fifth MCP joint without acute fracture or dislocatio n of the right hand. Electronically signed by: Candi Walton MD 03/15/2022 12:21 AM CDT Due to temporary technical issues with the PACS/Fluency reporting system, reports are being signed by the in house radiologists without review as a courtesy to insure prompt reporting. The interpreting radiologist is fully responsible for the content of the report.
[2022-03-16 20:23] VITALS: TEMP 98.6
[2022-03-16 20:48] VITALS: BP 142/75; O2SAT 100
== END 2022-03-15 01:12 | disposition home or self-care (01) ==
LOC: ER 23:12
DX: S60.221A Contusion of right hand, initial encounter (principal)
CPT/HCPCS: 99283

== ENCOUNTER 2023-10-03 00:23 | Emergency (ER) | payer SELFPAY ==
--- OUTSIDE RECORDS SUMMARY | 2023-10-03 00:27 | XMS REPORT | Continuity of Care Document ---
Author Name Unknown Address [address] [place] [address] [address] [id number] [facility] thconnect Address [address] [address] [address] [place] [address] Care Team Providers Care Assistant Professor Of Chemistry Name Role Phone Jaimie Tsang Attending Clinician Unavailable Problems Condition Name Condition Details Condition Category Status Onset Date Resolution Date Last Treatment Date Treating Clinician Comments Source Behavior causing concern in biological child Behavior causing concern in biological child Problem Active [facility] Bipolar affective disorder, remission status unspecifie d Bipolar affective disorder, remission status unspecifie d Problem Active [facility] Depression with anxiety Depression with anxiety Problem Active [facility] Insomnia, unspecifie d type Insomnia, unspecifie d type Problem Active [facility] Bipolar depression Bipolar depression Problem Active [facility] Depression Depression Problem Active [facility] Seasonal allergies Seasonal allergies Problem Active [facility] Migraines Migraines Problem Active [facility] Medications Ordered Medication Name Filled Medication Name Start Date Stop Date Current Medication? Ordering Clinician Indication Dosage Frequency Signature (SIG) Comments Components Source Trazodone HCl Trazodone HCl 09-25 00:00: 00 Yes Patrizia Flores 1-2 tablets at bedtime as needed for sleep [facility] Encounters Start Date/Time End Date/Time Encounter Type Admission Type Attending Clinicians Care Facility Care Department Encounter ID Source 2021-07-19 12:19:[address] [facility] [id number] [facility] 2019-10-12 08:55:00 2019-10-12 08:55:00 Outpatient [facility] Medicine [facility] [id number] [facility] 2019-10-09 13:20:00 2019-10-09 13:20:00 Outpatient [facility] Medicine [facility] [id number] [facility] 2019-10-09 10:59:00 2019-10-09 10:59:00 Outpatient [facility] [id number] [facility] 2018-10-08 14:40:00 2018-10-08 14:40:00 Outpatient [facility] [id number] [facility] 2018-09-25 23:46:00 2018-09-25 23:46:00 Outpatient [facility] Medicine [facility] [id number] [facility] 2018-09-25 15:20:00 2018-09-25 15:20:00 Outpatient [facility] [id number] [facility]
--- NOTE | 2023-10-03 00:45 | ER ---
Nurse's Notes [facility] Name: Eduardo Mullins Age: 23 yrs Sex: Male : 2000 Arrival Date: 10/03/2023 Time: 00:23 Bed IW2 Private MD: Diagnosis: Abrasion of ear canal Presentation: 10/02 00:36 Chief complaint: Patient states: was using a ear cleaning tool with a camera and hit km8 his arm making the tool hit further into his left ear causing pain, ringing, and blood. Coronavirus screen: Client denies travel out of the [place] in the last 14 days. Ebola Screen: No symptoms or risks identified at this time. Initial Sepsis Screen: Does the patient meet any 2 criteria? No. Patient's initial sepsis screen is negative. Does the patient have a suspected source of infection? No. Patient's initial sepsis screen is negative. Risk Assessment: Do you want to hurt yourself or someone else? Patient reports no desire to harm self or others. Onset of symptoms was October 03, 2023 at 00:20. 00:36 Method Of Arrival: Ambulatory km8 00:36 Acuity: LEXX 3 km8 Triage Assessment: 00:38 General: Appears in no apparent distress. comfortable, Behavior is calm, cooperative, km8 appropriate for age. Pain: Complains of pain in left ear Pain currently is 7 out of 10 on a pain scale. Quality of pain is described as throbbing, stinging. EENT: Ear canal w/ bleeding noted from left ear. Neuro: Level of Consciousness is awake, alert, obeys commands, Oriented to person, place, time, situation. Cardiovascular: Denies chest pain, shortness of breath, Patient's skin is warm and dry. Respiratory: Airway is patent Respiratory effort is even, unlabored, Respiratory pattern is regular, symmetrical. GI: No signs and/or symptoms were reported involving the gastrointestinal system. : No signs and/or symptoms were reported regarding the genitourinary system. Derm: No signs and/or symptoms reported regarding the dermatologic system. Skin is intact, is healthy with good turgor, Skin is dry, Skin is pink, warm \T\ dry. normal, Skin temperature is warm. Musculoskeletal: No signs and/or symptoms reported regarding the musculoskeletal system. Range of motion: intact in all extremities. Historical: - Allergies: 00:38 No Known Allergies; km8 - Home Meds: 00:38 None [Active]; km8 - PMHx: 00:38 None; km8 - PSHx: 00:38 None; km8 - Immunization history:: Adult Immunizations up to date. - Infectious Disease History:: Denies. - Social history:: Smoking status: Patient denies any tobacco usage or history of. Screenin:36 [facility] ED Fall Risk Assessment (Adult) History of falling in the last 3 months, km8 including since admission No falls in past 3 months (0 pts) Confusion or Disorientation No (0 pts) Intoxicated or Sedated No (0 pts) Impaired Gait No (0 pts) Mobility Assist Device Used No (0 pt) Altered Elimination No (0 pt) Score/Fall Risk Level 0 - 2 = Low Risk Oriented to surroundings, Maintained a safe environment, Educated pt \T\ family on fall prevention, incl call for assistance when getting out of bed, Assessed \T\ reinforced patient's understanding of fall precautions. Abuse screen: Denies threats or abuse. Denies injuries from another. Nutritional screening: No deficits noted. Tuberculosis screening: No symptoms or risk factors identified. Assessment: 00:36 Reassessment: see triage assessment/notes. km8 Vital Signs: 00:36 BP 134 / 94; Pulse 71; Resp 16; Temp 97.2(TE); Pulse Ox 96% on R/A; Weight 69.4 kg; km8 Height 5 ft. 10 in. (R); Pain 7/10; 00:36 Body Mass Index 21.95 (69.40 kg, 177.8 cm) km8 00:36 Pain Scale: Adult km8 Walsh Coma Score: 00:36 Eye Response: spontaneous(4). Motor Response: obeys commands(6). Verbal Response: km8 oriented(5). Total: 15. ED Course: 00:26 Patient arrived in ED. ra3 00:36 Patient has correct armband on for positive identification. Adult w/ patient. km8 00:38 Triage completed. km8 00:38 Arm band placed on right wrist. km8 00:43 Vanessa Ratliff RN is Primary Nurse. km8 00:44 Helen Nichols FNP-C is PHCP. kb 00:44 Hunter Durham MD is Attending Physician. charity 00:44 Provided Education on: d/c teaching. km8 00:44 No provider procedures requiring assistance completed. Patient did not have IV access km8 during this emergency room visit. Administered Medications: No medications were administered Medication: 00:36 VIS not applicable for this client. km8 Outcome: 00:44 Discharge ordered by . charity 00:44 Discharged to home ambulatory, with significant other, km8 00:44 Condition: good 00:44 Discharge instructions given to patient, Instructed on discharge instructions, follow up and referral plans. Demonstrated understanding of instructions, follow-up care, 00:45 Patient left the ED. km8 Signatures: Helen Nichols, SENIOR COST ACCOUNTANT-C SENIOR COST ACCOUNTANT-Vanessa Capone, MERCEDEZ RN km8 Kemi Sanderson ra3
--- NOTE | 2023-10-03 00:45 | EDPHYS ---
Physician Documentation [facility] Name: Eduardo Mullins Age: 23 yrs Sex: Male : 2000 Arrival Date: 10/03/2023 Time: 00:23 Bed IW2 Private MD: ED Physician Hunter Durham HPI: 10/02 00:46 This 23 yrs old Male presents to ER via Ambulatory with complaints of Ear Injury - kb Bleeding. 00:46 Pt is a 23 year old male who presents for bleeding from left ear. States he was kb cleaning his ear and his child started crying so he turned his head and believes he punctured his ear drum.. Historical: - Allergies: 00:38 No Known Allergies; km8 - Home Meds: 00:38 None [Active]; km8 - PMHx: 00:38 None; km8 - PSHx: 00:38 None; km8 - Immunization history:: Adult Immunizations up to date. - Infectious Disease History:: Denies. - Social history:: Smoking status: Patient denies any tobacco usage or history of. ROS: 00:45 Constitutional: As per HPI kb Exam: 00:45 Constitutional: This is a well developed, well nourished patient who is awake, alert, kb and in no acute distress. Head/Face: Normocephalic, atraumatic. Cardiovascular: Regular rate Respiratory: Respirations even and unlabored. No increased work of breathing. Talking in full sentences Skin: Warm, dry with normal turgor. Normal color. MS/ Extremity: Pulses equal, no cyanosis. Neurovascular intact. Full, normal range of motion. Neuro: Awake and alert, GCS 15, oriented to person, place, time, and situation. Moves all extremities. Normal gait. 00:45 ENT: External ear(s): are unremarkable, Ear canal(s): abrasion with dried blood, TM's: are normal, Vital Signs: 00:36 BP 134 / 94; Pulse 71; Resp 16; Temp 97.2(TE); Pulse Ox 96% on R/A; Weight 69.4 kg; km8 Height 5 ft. 10 in. (R); Pain 7/10; 00:36 Body Mass Index 21.95 (69.40 kg, 177.8 cm) km8 00:36 Pain Scale: Adult km8 Everett Coma Score: 00:36 Eye Response: spontaneous(4). Motor Response: obeys commands(6). Verbal Response: km8 oriented(5). Total: 15. MDM: 00:44 Patient medically screened. kb 00:46 Differential diagnosis: ruptured TM, abrasion. Data reviewed: vital signs, nurses kb notes. Counseling: I had a detailed discussion with the patient and/or guardian regarding the historical points, exam findings, and any diagnostic results supporting the discharge/admit diagnosis, the need for outpatient follow up, a family practitioner, to return to the emergency department if symptoms worsen or persist or if there are any questions or concerns that arise at home. Administered Medications: No medications were administered Disposition: 07:22 Co-signature as Attending Physician, Hunter Durham MD I agree with the assessment sp4 and plan of care. I reviewed the patient's care provided by the Advanced Practice Provider and agree with the diagnosis and treatment plan. Disposition Summary: 10/03/23 00:44 Discharge Ordered Notes: Location: Home kb Condition: Stable kb Diagnosis - Abrasion of ear canal kb Followup: kb - With: Emergency Department - When: As needed - Reason: Worsening of condition Followup: kb - With: Private Physician - When: 2 - 3 days - Reason: Recheck today's complaints, Continuance of care, Re-evaluation by your physician Discharge Instructions: - Discharge Summary Sheet kb - Abrasion, [id number] kb Forms: - Medication Reconciliation Form kb - Thank You Letter kb - Antibiotic Education kb - Prescription Opioid Use kb - Patient Portal Instructions kb - Leadership Thank You Letter kb Signatures: Helen Nichols FNP-C FNP-Hunter Miranda MD MD sp4 Vanessa Ratliff, RN RN km8
[2023-10-03 04:06] VITALS: BP 134/94; TEMP 97.2; O2SAT 96
== END 2023-10-03 00:45 | disposition home or self-care (01) ==
LOC: ER 00:23
DX: S00.412A Abrasion of left ear, initial encounter (principal)
CPT/HCPCS: 99282

== ENCOUNTER 2023-10-21 12:56 | Emergency (ER) | payer OTHER ==
--- OUTSIDE RECORDS SUMMARY | 2023-10-21 12:58 | XMS REPORT | Continuity of Care Document ---
Author Name Unknown Address [address] [place] [address] [address] [id number] [facility] thconnect Address [address] [address] [address] [place] [address] Care Team Providers Care Air And Water Tester Name Role Phone Jaimie Tsang Attending Clinician Unavailable Problems Condition Name Condition Details Condition Category Status Onset Date Resolution Date Last Treatment Date Treating Clinician Comments Source Behavior causing concern in biological child Behavior causing concern in biological child Problem Active [facility] Bipolar affective disorder, remission status unspecifie d Bipolar affective disorder, remission status unspecifie d Problem Active [facility] Depression with anxiety Depression with anxiety Problem Active [facility] Insomnia, unspecifie d type Insomnia, unspecifie d type Problem Active [facility] Bipolar depression Bipolar depression Problem Active [facility] Depression Depression Problem Active [facility] Seasonal allergies Seasonal allergies Problem Active [facility] Migraines Migraines Problem Active Com mon [facility] Medications Ordered Medication Name Filled Medication Name Start Date Stop Date Current Medication? Ordering Clinician Indication Dosage Frequency Signature (SIG) Comments Components Source Trazodone HCl Trazodone HCl 09-25 00:00: 00 Yes Patrizia Flores 1-2 tablets at bedtime as needed for sleep [facility] Encounters Start Date/Time End Date/Time Encounter Type Admission Type Attending Clinicians Care Facility Care Department Encounter ID Source 2021-07-19 12:19:49 Outpatient Jaimie Tsang [facility] [id number] [facility] 2019-10-12 08:55:00 2019-10-12 08:55:00 Outpatient [facility] [id number] [facility] 2019-10-09 13:20:00 2019-10-09 13:20:00 Outpatient [facility] [id number] [facility] 2019-10-09 10:59:00 2019-10-09 10:59:00 Outpatient [facility] [id number] [facility] 2018-10-08 14:40:00 2018-10-08 14:40:00 Outpatient [facility] [id number] [facility] 2018-09-25 23:46:00 2018-09-25 23:46:00 Outpatient [facility] [id number] [facility] 2018-09-25 15:20:00 2018-09-25 15:20:00 Outpatient [facility] [id number] [facility]
[2023-10-21] MEDS ORDERED: HYDROCODONE/APAP 7.5/325 MG TAB ONE (13:16)
[2023-10-21] MEDS ORDERED: IBUPROFEN 200 MG TAB PO ONE (13:16)
--- NOTE | 2023-10-21 14:33 | RAD REPORT ---
EXAM DESCRIPTION: RAD - Forearm Right - 10/21/2023 1:31 pm CLINICAL HISTORY: PAIN COMPARISON: Hand Right 3 View dated 10/21/2023; Wrist Right 3 View dated 10/21/2023 TECHNIQUE: Right forearm, one-view. FINDINGS: No fracture is identified. There is no dislocation or periosteal reaction noted. No foreign body or other soft tissue abnormality. IMPRESSION: Negative right forearm examination.
--- NOTE | 2023-10-21 14:33 | RAD REPORT ---
EXAM DESCRIPTION: RAD - Hand Right 3 View - 10/21/2023 1:31 pm CLINICAL HISTORY: PAIN COMPARISON: Hand Right 3 View dated 03/14/2022 TECHNIQUE: Right hand, 3 views. FINDINGS: No fracture is identified. There is no dislocation or periosteal reaction noted. No foreign body or other soft tissue abnormalit y. IMPRESSION: Negative right hand examination.
--- NOTE | 2023-10-21 14:36 | RAD REPORT ---
EXAM DESCRIPTION: RAD - Wrist Right 3 View - 10/21/2023 1:31 pm CLINICAL HISTORY: PAIN COMPARISON: No comparisons TECHNIQUE: Right wrist, 3 views. FINDINGS: No fracture is identified. There is no dislocation or periosteal reaction noted. No foreign body or other soft tissue abnormalit y. IMPRESSION: Buckle fracture distal right radius.
--- NOTE | 2023-10-21 14:54 | ER ---
Nurse's Notes [facility] Name: Eduardo Mullins Age: 23 yrs Sex: Male : 2000 Arrival Date: 10/21/2023 Time: 12:56 Bed 9 Private MD: Diagnosis: Buckle fracture right distal radius Presentation: 10/20 13:01 Chief complaint: Patient states: punched the wall "for fun" last night. C/O pain to ld1 right hand/arm. Coronavirus screen: At this time, the client does not indicate any symptoms associated with coronavirus-19. Ebola Screen: No symptoms or risks identified at this time. Initial Sepsis Screen: Does the patient meet any 2 criteria? No. Patient's initial sepsis screen is negative. Does the patient have a suspected source of infection? No. Patient's initial sepsis screen is negative. Risk Assessment: Do you want to hurt yourself or someone else? Patient reports no desire to harm self or others. Onset of symptoms was October 21, 2023. 13:01 Method Of Arrival: Ambulatory ld1 13:01 Acuity: LEXX 4 ld1 Triage Assessment: 13:02 General: Appears in no apparent distress. comfortable, Behavior is calm, cooperative, ld1 appropriate for age. Pain: Complains of pain in right hand and right arm Pain does not radiate. Pain currently is 7 out of 10 on a pain scale. Quality of pain is described as throbbing, Pain began suddenly, Is continuous. EENT: No signs and/or symptoms were reported regarding the EENT system. Neuro: Level of Consciousness is awake, alert, obeys commands, Oriented to person, place, time, situation. Cardiovascular: Capillary refill < 3 seconds Patient's skin is warm and dry. Respiratory: Airway is patent Respiratory effort is even, unlabored. GI: Abdomen is flat, non-distended. : No signs and/or symptoms were reported regarding the genitourinary system. Derm: No signs and/or symptoms reported regarding the dermatologic system. Musculoskeletal: No signs and/or symptoms reported regarding the musculoskeletal system. Historical: - Allergies: 13:02 No Known Allergies; ld1 - Home Meds: 13: None [Active]; ld1 - PMHx: 13: None; ld1 - PSHx: 13:02 None; ld1 - Immunization history:: Adult Immunizations up to date. - Infectious Disease History:: Denies. - Social history:: Smoking status: Patient denies any tobacco usage or history of. Screenin:56 [facility] ED Fall Risk Assessment (Adult) History of falling in the last 3 months, as6 including since admission No falls in past 3 months (0 pts) Confusion or Disorientation No (0 pts) Intoxicated or Sedated No (0 pts) Impaired Gait No (0 pts) Mobility Assist Device Used No (0 pt) Altered Elimination No (0 pt) Score/Fall Risk Level 0 - 2 = Low Risk Oriented to surroundings, Maintained a safe environment, Educated pt \\T\\ family on fall prevention, incl call for assistance when getting out of bed, Assessed \\T\\ reinforced patient's understanding of fall precautions. Abuse screen: Denies threats or abuse. Denies injuries from another. Nutritional screening: No deficits noted. Tuberculosis screening: No symptoms or risk factors identified. Assessment: 15:24 Reassessment: Patient appears in no apparent distress at this time. Patient states as6 feeling better. Vital Signs: 13:01 Pulse 86; Resp 18; Temp 98.7(TE); Pulse Ox 100% on R/A; Weight 68.04 kg; Height 5 ft. ld1 10 in. ; Pain 7/10; 13:01 BP 135 / 91; ld1 15:26 BP 117 / 81; Pulse 65; Resp 16 S; Pulse Ox 99% on R/A; as6 13:01 Body Mass Index 21.52 (68.04 kg, 177.8 cm) ld1 13:01 Pain Scale: Adult ld1 ED Course: 12:57 Patient arrived in ED. mr 13:02 Triage completed. ld1 13:02 Ibeth Jasmine PA-C is PHCP. sb4 13:02 Dagoberto Saenz MD is Attending Physician. sb4 13:02 Arm band placed on right wrist. ld1 13:33 XRAY Hand RIGHT 3 View In Process Unspecified. EDMS 13:33 XRAY Wrist RIGHT 3 view In Process Unspecified. EDMS 13:33 XRAY Forearm RIGHT In Process Unspecified. EDMS 14:48 Alan Guardado, MERCEDEZ is Primary Nurse. as6 14:57 Bed in low position. Call light in reach. as6 14:57 No provider procedures requiring assistance completed. Patient did not have IV access as6 during this emergency room visit. 15:24 Provided Education on: cast care, follow up with ortho . as6 15:24 Orthoglass splint: Ulnar gutter/Boxer splint applied on right forearm. as6 Administered Medications: 13:19 Drug: Hydrocodone-Acetaminophen PO (7.5 mg-325 mg) 1 tabs PO once Route: PO; ld1 14:57 Follow up: Response: No adverse reaction as6 13:19 Drug: Ibuprofen PO 600 mg PO once Route: PO; ld1 14:57 Follow up: Response: No adverse reaction as6 Medication: 14:57 VIS not applicable for this client. as6 Outcome: 14:53 Discharge ordered by . sb4 15:25 Discharged to home ambulatory, with significant other, as6 15:25 Condition: stable 15:25 Discharge instructions given to patient, Instructed on discharge instructions, follow up and referral plans. Demonstrated understanding of instructions, follow-up care, splint care, 15:27 Patient left the ED. as6 Signatures: Dispatcher [employer] EDTN Michaela Menchaca, Reg Reg mr Roma Alex, RN RN ld1 Alan Guardado, RN RN as6 Ibeth Jasmine, PAMirna PAMirna sb4
--- NOTE | 2023-10-21 14:54 | EDPHYS ---
Physician Documentation [facility] Name: Eduardo Mullins Age: 23 yrs Sex: Male : 2000 Arrival Date: 10/21/2023 Time: 12:56 Bed 9 Private MD: ED Physician Dagoberto Saenz HPI: 10/20 13:06 This 23 yrs old Male presents to ER via Ambulatory with complaints of Arm Problem. sb4 13:06 Patient states he punched his hand through a wooden door 15 minutes ago just for fun. sb4 Complains of pain now to his right hand wrist and forearm. He is otherwise healthy, has no medical problems, has not taken anything for the pain.. Historical: - Allergies: 13:02 No Known Allergies; ld1 - Home Meds: 13:02 None [Active]; ld1 - PMHx: 13:02 None; ld1 - PSHx: 13:02 None; ld1 - Immunization history:: Adult Immunizations up to date. - Infectious Disease History:: Denies. - Social history:: Smoking status: Patient denies any tobacco usage or history of. ROS: 13:06 Constitutional: Negative for fever, chills, and weight loss, sb4 13:06 MS/extremity: Positive for injury or acute deformity, pain, of the right arm and right hand, 13:06 All other systems are negative, Exam: 14:51 Constitutional: This is a well developed, well nourished patient who is awake, alert, sb4 and in no acute distress. Head/Face: Normocephalic, atraumatic. Eyes: Extra-ocular motions intact. Periorbital areas with no swelling, redness, or edema. ENT: Mucous membranes moist. 14:51 Musculoskeletal/extremity: Extremities: noted in the dorsal aspect of right forearm: swelling, tenderness, ROM: limited active range of motion due to pain, limited passive range of motion due to pain, Pulses: are normal with no appreciated deficits, Perfusion: the extremity is normally perfused throughout, Sensation intact. 14:51 Skin: injury, abrasion(s), small abrasion noted, of the dorsal aspect of right forearm, Vital Signs: 13:01 Pulse 86; Resp 18; Temp 98.7(TE); Pulse Ox 100% on R/A; Weight 68.04 kg; Height 5 ft. ld1 10 in. ; Pain 7/10; 13:01 BP 135 / 91; ld1 15:26 BP 117 / 81; Pulse 65; Resp 16 S; Pulse Ox 99% on R/A; as6 13:01 Body Mass Index 21.52 (68.04 kg, 177.8 cm) ld1 13:01 Pain Scale: Adult ld1 MDM: 13:04 Patient medically screened. sb4 14:51 Differential diagnosis: dislocation, closed fracture, contusion, sprain, srtain. Data sb4 reviewed: vital signs, nurses notes, radiologic studies, and as a result, I will discharge patient. Counseling: I had a detailed discussion with the patient and/or guardian regarding the historical points, exam findings, and any diagnostic results supporting the discharge/admit diagnosis, radiology results, to return to the emergency department if symptoms worsen or persist or if there are any questions or concerns that arise at home. 10/20 13:03 Order name: XRAY Hand RIGHT 3 View; Complete Time: 14:35 ld1 10/20 13:03 Order name: XRAY Wrist RIGHT 3 view; Complete Time: 14:39 ld1 10/20 13:04 Order name: XRAY Forearm RIGHT; Complete Time: 14:35 ld1 10/20 15:14 Order name: Volar Wrist Splint; Complete Time: 15:22 sb4 Administered Medications: 13:19 Drug: Hydrocodone-Acetaminophen PO (7.5 mg-325 mg) 1 tabs PO once Route: PO; ld1 14:57 Follow up: Response: No adverse reaction as6 13:19 Drug: Ibuprofen PO 600 mg PO once Route: PO; ld1 14:57 Follow up: Response: No adverse reaction as6 Disposition: 17:45 Co-signature as Attending Physician, Dagoberto Saenz MD I reviewed the patient's care rn provided by the Advanced Practice Provider and agree with the diagnosis and treatment plan. Disposition Summary: 10/21/23 14:53 Discharge Ordered Notes: Location: Home sb4 Problem: new sb4 Symptoms: have improved sb4 Condition: Stable sb4 Diagnosis - Buckle fracture right distal radius sb4 Followup: sb4 - With: Private Physician - When: 1 week - Reason: Recheck today's complaints, Re-evaluation by your physician Discharge Instructions: - Discharge Summary Sheet sb4 - Radial Fracture sb4 Forms: - Antibiotic Education sb4 - Patient Portal Instructions sb4 - Leadership Thank You Letter sb4 Signatures: Dispatcher [employer] EDDagoberto Borges MD MD rn Roma Alex RN RN ld1 Ibeth Jasmine PA-C PA-C sb4 Alan Guardado RN as6 Corrections: (The following items were deleted from the chart) 15:14 14:40 Splint - Thumb Spica ordered. sb4 sb4
[2023-10-21 15:48] VITALS: BP 117/81; TEMP 98.7; O2SAT 99
== END 2023-10-21 15:27 | disposition home or self-care (01) ==
LOC: ER 12:56
DX: S52.521A Torus fracture of lower end of right radius, initial encounter for closed fracture (principal)
CPT/HCPCS: 99283

== ENCOUNTER 2024-08-20 18:31 | Emergency (ER) | payer OTHER ==
[2024-08-20 19:33] LABS: Absolute Eosinophils 0.1 K/uL (0-0.5); Absolute Monocytes 0.5 K/uL (0.1-1.3); Absolute Neutrophil 3.7 K/uL (1.8-8.0); Basophils % 0.4 % (0-1.3); Eosinophils % 2.1 % (0-4.4); Hematocrit 39.9 % (39.6-49.0); Hemoglobin 14.2 g/dL (13.6-17.9); Lymphocytes % 30.8 % (15.3-44.8); MCH 30.8 pg (27.0-35.0); MCHC 35.5 g/dL (32.0-36.0); MCV 86.6 fL (80-100); MPV 9.9 fL (7.6-11.3); Monocytes % 8.6 % (3.3-12.3); Neutrophils % 58.1 % (41.7-73.7); Nucleated Red Blood Cells % 0.1 % (0-0); Platelets 143 thou/uL (152-406); Red Cell Distribution Width 13.2 % (12.1-15.2)
[2024-08-20 19:35] LABS: Albumin 3.7 g/dL (3.4-5.0); Albumin/Globulin Ratio 1.2 (1.1-1.8); Anion Gap 8.5 mEq/L (5.0-15.0); Bilirubin Total 0.4 mg/dL (0.2-1.0); Globulin 3.2 g/dL (2.3-3.5); Potassium 3.5 mEq/L (3.5-5.1); Protein, Total 6.9 g/dL (6.4-8.2)
[2024-08-20 19:36] LABS: PT Prothrombin Time 11.3 SECONDS (10.0-13.0); Protime INR 0.99
--- NOTE | 2024-08-20 19:40 | RAD REPORT ---
EXAMINATION: CT ABDOMEN AND PELVIS WITH CONTRAST CLINICAL INDICATION: Male, 24 years old.rectal bleeding;Abd pain TECHNIQUE: CT abdomen and pelvis was performed, after the administration of IV contrast, as per [facility] protocol. Axial, sagittal and coronal reconstructions were obtained. One or more of the following dose reduction techniques were used: Automated exposure control, adjustment of the mA and/o r kV according to patient size, and/or iterative reconstruction. Unless otherwise specified, incidental findings do not require dedicated imaging follow-up. [id number]. COMPARISON: No prior exam. FINDINGS: LOWER CHEST: No acute process identified.No significant pericardial effusion. UPPER GI: No significant abnormality. LIVER: No significant focal abnormality. GALLBLADDER/BILE DUCTS: No biliary ductal dilatation.? PANCREAS: No mass, ductal dilation, or kassi-pancreatic fluid. SPLEEN: Unremarkable. ADRENALS: No adrenal masses. KIDNEYS AND URETERS: No hydronephrosis.No suspicious renal mass.No renal calculi. ABDOMINAL AORTA AND OTHER VESSELS: Normal caliber aorta and IVC. PERITONEUM: No abnormal free fluid. No free air. LYMPH NODES: No pathologic lymphadenopathy. ABDOMINAL WALL: Unremarkable SMALL BOWEL/COLON: Small bowel has normal course and caliber. No colonic wall thickening or pericolon ic inflammatory changes. URINARY BLADDER: Underdistended but grossly unremarkable. REPRODUCTIVE ORGANS: No pathologic process. MUSCULOSKELETAL: No acute or suspicious osseous abnormality. ADDITIONAL FINDINGS: None. IMPRESSION: No acute findings within the abdomen or pelvis. No appendicitis. No source of rectal bleeding identified.
--- NOTE | 2024-08-20 19:48 | ER ---
Nurse's Notes [facility] Name: Eduardo Mullins Age: 24 yrs Sex: Male : 2000 Arrival Date: 08/20/2024 Time: 18:31 Bed 4 Private MD: Diagnosis: Rectal bleeding Presentation: 08/20 18:51 Chief complaint: Spouse and/or significant other states: he has been having rectal ap3 bleeding that started approx one hour ago, but that it got worse today. patient denies any pain. Coronavirus screen: At this time, the client does not indicate any symptoms associated with coronavirus-19. Ebola Screen: No symptoms or risks identified at this time. Initial Sepsis Screen: Does the patient meet any 2 criteria?. Risk Assessment: Do you want to hurt yourself or someone else? Patient reports no desire to harm self or others. Onset of symptoms is unknown. 18:51 Method Of Arrival: Ambulatory ap3 18:51 Acuity: LEXX 3 ap3 Triage Assessment: 18:52 General: Appears in no apparent distress. Behavior is calm, cooperative, appropriate ap3 for age. Pain: Denies pain. Neuro: Level of Consciousness is awake, alert, obeys commands, Oriented to person, place, time, situation. Cardiovascular: Patient's skin is warm and dry. Respiratory: Airway is patent Respiratory effort is even, unlabored, Respiratory pattern is regular, symmetrical. GI: Reports rectal bleeding. Historical: - Allergies: 18:52 No Known Allergies; ap3 - Home Meds: 18:52 None [Active]; ap3 - PMHx: 18:52 None; ap3 - Immunization history:: Client reports having NOT received the Covid vaccine. Flu vaccine status is unknown. - Infectious Disease History:: Denies. - Social history:: Smoking status: Patient denies any tobacco usage or history of. - Family history:: not pertinent. - Hospitalizations: : No recent hospitalization is reported. Screenin:53 [facility] ED Fall Risk Assessment (Adult) History of falling in the last 3 months, ap3 including since admission No falls in past 3 months (0 pts) Confusion or Disorientation No (0 pts) Intoxicated or Sedated No (0 pts) Impaired Gait No (0 pts) Mobility Assist Device Used No (0 pt) Altered Elimination No (0 pt) Score/Fall Risk Level 0 - 2 = Low Risk Oriented to surroundings, Maintained a safe environment, Educated pt \T\ family on fall prevention, incl call for assistance when getting out of bed, Assessed \T\ reinforced patient's understanding of fall precautions, Hourly rounding (assess needs \T\ fall precautionary measures) done, Used ambulatory aids as needed (educated on \T\ assisted with). Abuse screen: Denies threats or abuse. Nutritional screening: No deficits noted. Tuberculosis screening: No symptoms or risk factors identified. Assessment: 19:16 General: Appears in no apparent distress. comfortable, Behavior is calm, cooperative, bm8 appropriate for age. Pain: Complains of pain in pelvis Pain currently is 4 out of 10 on a pain scale. Quality of pain is described as aching. Neuro: No deficits noted. Level of Consciousness is awake, alert, obeys commands, Oriented to person, place, time, situation, Appropriate for age. Cardiovascular: Denies chest pain, Capillary refill < 3 seconds in bilateral fingers Patient's skin is warm and dry. Respiratory: Airway is patent Respiratory effort is even, unlabored, Respiratory pattern is regular, symmetrical. GI: Reports rectal bleeding, Pain is 4 out of 10 on a pain scale. : Urine is clear. EENT: No signs and/or symptoms were reported regarding the EENT system. Derm: No signs and/or symptoms reported regarding the dermatologic system. Musculoskeletal: No signs and/or symptoms reported regarding the musculoskeletal system. Vital Signs: 18:51 Weight 68.04 kg; Height 5 ft. 10 in. ; ap3 18:59 BP 141 / 95; Pulse 75; Resp 17; Temp 98.7; Pulse Ox 100% ; ap3 19:59 BP 140 / 91; Pulse 74; Resp 16; Temp 98.3; Pulse Ox 99% on R/A; dd2 18:51 Body Mass Index 21.52 (68.04 kg, 177.8 cm) ap3 Claude Coma Score: 19:16 Eye Response: spontaneous(4). Motor Response: obeys commands(6). Verbal Response: bm8 oriented(5). Total: 15. ED Course: 18:34 Patient arrived in ED. jj6 18:38 Dagoberto Saenz MD is Attending Physician. rn 18:52 Triage completed. ap3 18:53 Arm band placed on right wrist. ap3 18:53 Patient has correct armband on for positive identification. Placed in gown. ap3 19:05 Dariel Hastings, RN is Primary Nurse. bm8 19:16 Client placed on continuous cardiac and pulse oximetry monitoring. NIBP monitoring bm8 applied. Pulse ox on. NIBP on. Door closed. Noise minimized. Pillow given. Verbal reassurance given. Head of bed elevated. 19:16 No provider procedures requiring assistance completed. Initial lab(s) drawn, by steven patino sent to lab. Inserted saline lock: 20 gauge in right antecubital area, using aseptic technique. Blood collected. Flushed with 10 mL NS. Patient maintains SpO2 saturation greater than 95% on room air. 19:24 CT Abd/Pelvis - IV Contrast Only In Process Unspecified. EDMS 19:59 Provided Education on: D/C EDUCATION. dd2 19:59 IV discontinued, intact, bleeding controlled, No redness/swelling at site. Pressure dd2 dressing applied. Administered Medications: No medications were administered Medication: 19:16 VIS not applicable for this client. bm8 Outcome: 19:48 Discharge ordered by . rn 19:59 Discharged to home ambulatory, dd2 19:59 Condition: stable 19:59 Discharge instructions given to patient, Instructed on discharge instructions, follow up and referral plans. Demonstrated understanding of instructions, follow-up care, 20:01 Patient left the ED. dd2 Signatures: Dispatcher [employer] EDVA Dagoberto Saenz MD MD rn Prokisch, Amanda RN RN ap3 Velia Singleton jj6 Dariel Hastings, RN RN bm8 NICO JOSHI RN RN dd2
--- NOTE | 2024-08-20 19:48 | EDPHYS ---
Physician Documentation [facility] Name: Eduardo Mullins Age: 24 yrs Sex: Male : 2000 Arrival Date: 08/20/2024 Time: 18:31 Bed 4 Private MD: ED Physician Dagoberto Saenz HPI: 08/20 19:10 This 24 yrs old Male presents to ER via Ambulatory with complaints of Rectal Bleeding. rn 19:10 The patient presents to the emergency department with bleeding from the rectum/anus. rn Onset: The symptoms/episode began/occurred 3 day(s) ago. Modifying factors: The symptoms are alleviated by nothing, The symptoms are aggravated by bowel movement. Associate signs and symptoms: Pertinent positives: abdominal pain in the right lower quadrant and left lower quadrant, Pertinent negatives: fever. The patient has experienced similar episodes in the past. Patient reports about a year of intermittent rectal bleeding. Got worse over the last 3 days, began to pass clots and associated with lower abdominal pain. No fever or chills. No trauma.. Historical: - Allergies: 18:52 No Known Allergies; ap3 - Home Meds: 18:52 None [Active]; ap3 - PMHx: 18:52 None; ap3 - Immunization history:: Client reports having NOT received the Covid vaccine. Flu vaccine status is unknown. - Infectious Disease History:: Denies. - Social history:: Smoking status: Patient denies any tobacco usage or history of. - Family history:: not pertinent. - Hospitalizations: : No recent hospitalization is reported. ROS: 19:10 Constitutional: Negative for fever, chills, and weight loss, Cardiovascular: Negative rn for chest pain, palpitations, and edema, Respiratory: Negative for shortness of breath, cough, wheezing, and pleuritic chest pain, Abdomen/GI: Positive for abdominal pain, positive for rectal bleeding MS/Extremity: Negative for injury and deformity, Skin: Negative for injury, rash, and discoloration, Neuro: Negative for headache, weakness, numbness, tingling, and seizure, Exam: 19:10 Constitutional: This is a well developed, well nourished patient who is awake, alert, rn and in no acute distress. Cardiovascular: Regular rate and rhythm. No pulse deficits. Abdomen/GI: Soft, mild left lower quadrant and right lower quadrant tenderness. Has external hemorrhoids but do not appear to be bleeding or swollen or tender. No evidence of fissure Vital Signs: 18:51 Weight 68.04 kg; Height 5 ft. 10 in. ; ap3 18:59 BP 141 / 95; Pulse 75; Resp 17; Temp 98.7; Pulse Ox 100% ; ap3 19:59 BP 140 / 91; Pulse 74; Resp 16; Temp 98.3; Pulse Ox 99% on R/A; dd2 18:51 Body Mass Index 21.52 (68.04 kg, 177.8 cm) ap3 Claude Coma Score: 19:16 Eye Response: spontaneous(4). Motor Response: obeys commands(6). Verbal Response: bm8 oriented(5). Total: 15. MDM: 18:38 Medical Screening Exam initiated rn 19:46 Differential diagnosis: hemorrhoids, internal hemorrhoids, diverticulosis. Data rn reviewed: vital signs, nurses notes, lab test result(s), radiologic studies, CT scan, and as a result, I will discharge patient. Counseling: I had a detailed discussion with the patient and/or guardian regarding the historical points, exam findings, and any diagnostic results supporting the discharge/admit diagnosis, lab results, radiology results, the need for outpatient follow up, to return to the emergency department if symptoms worsen or persist or if there are any questions or concerns that arise at home. Special discussion: I discussed with the patient/guardian in detail that at this point there is no indication for admission to the hospital. It is understood, however, that if the symptoms persist or worsen the patient needs to return immediately for re-evaluation. Based on the history and exam findings, there is no indication for further emergent testing or inpatient evaluation. I discussed with the patient/guardian the need to see the manager of digital for further evaluation of the symptoms. 08/20 19: Order name: CBC with Diff; Complete Time: 19:44 rn 08/20 19:03 Order name: CMP; Complete Time: 19:43 rn 08/20 19:03 Order name: Lipase; Complete Time: :43 rn 08/20 19:03 Order name: Protime (+inr); Complete Time: 19:43 rn 08/20 19:03 Order name: Ptt, Activated; Complete Time: 19:43 rn 08/20 19:03 Order name: CT Abd/Pelvis - IV Contrast Only; Complete Time: 19:43 rn 08/20 19:03 Order name: IV Saline Lock; Complete Time: 19:15 rn 08/20 19:03 Order name: Labs collected and sent; Complete Time: 19:15 rn Administered Medications: No medications were administered Disposition Summary: 08/20/24 19:48 Discharge Ordered Notes: Location: Home rn Problem: new rn Symptoms: have improved rn Condition: Stable rn Diagnosis - Rectal bleeding rn Followup: rn - With: Private Physician - When: As needed - Reason: Recheck today's complaints, Re-evaluation by your physician Discharge Instructions: - Discharge Summary Sheet rn - Hemorrhoids rn - Rectal Bleeding rn Forms: - Medication Reconciliation Form rn - Antibiotic intern architect - Prescription Opioid Use rn - Patient Portal Instructions rn - Leadership Thank You Letter rn Signatures: Dispatcher [employer] Dagoberto Warren MD MD rn Prokisch, Amanda RN RN ap3
[2024-08-20 20:22] VITALS: BP 141/95; TEMP 98.7; O2SAT 100
== END 2024-08-20 20:01 | disposition home or self-care (01) ==
LOC: ER 18:31
DX: K62.5 Hemorrhage of anus and rectum (principal); R10.31 Right lower quadrant pain; R10.32 Left lower quadrant pain
CPT/HCPCS: 85025; 36415; 85610; 85730; 83690; 80053; 74177; 99284; Q9967

== ENCOUNTER 2024-08-27 09:45 | Emergency (ER) | payer OTHER, SELFPAY ==
[2024-08-27 12:16] LABS: Specific Gravity 1.013 (1.005-1.030); Urine Bilirubin NEGATIVE (Negative); Urine Blood Negative (Negative); Urine Clarity Clear (Clear); Urine Color Colorless (Yellow); Urine Glucose NEGATIVE (Negative); Urine Ketones NEGATIVE (Negative); Urine Microscopic Reflex YN NO UMIC; Urine Nitrite NEGATIVE (Negative); Urine Protein NEGATIVE (Negative); Urine Urobilinogen Normal (Normal); Urine pH 7.5 (5.0-7.0)
--- NOTE | 2024-08-27 13:01 | EDPHYS ---
Physician Documentation [facility] Name: Eduardo Mullins Age: 24 yrs Sex: Male : 2000 Arrival Date: 08/27/2024 Time: 09:45 Bed DX2 Private MD: ED Physician Giovany Dueñas HPI: 08/27 12:57 This 24 yrs old Male presents to ER via Ambulatory with complaints of High nnamdi Blood Pressure, Vomiting. 12:57 The patient has elevated blood pressure and discovered this at home. Onset: The nnamdi symptoms/episode began/occurred 5 day(s) ago. Historical: - Allergies: 10:22 No Known Allergies; iw - Home Meds: 10:22 None [Active]; iw - PMHx: 10:22 None; iw - PSHx: 10:22 None; iw - Immunization history:: Adult Immunizations. - Infectious Disease History:: Denies. - Social history:: Smoking status: Patient denies any tobacco usage or history of. ROS: 12:57 Constitutional: Negative for fever, chills, and weight loss, Eyes: Negative for injury, nnamdi pain, redness, and discharge, ENT: Negative for injury, pain, and discharge, Neck: Negative for injury, pain, and swelling, Cardiovascular: Negative for chest pain, palpitations, and edema, Respiratory: Negative for shortness of breath, cough, wheezing, and pleuritic chest pain, Back: Negative for injury and pain, : Negative for injury, bleeding, discharge, and swelling, MS/Extremity: Negative for injury and deformity, Skin: Negative for injury, rash, and discoloration, Neuro: Negative for headache, weakness, numbness, tingling, and seizure, Psych: Negative for depression, anxiety, suicide ideation, homicidal ideation, and hallucinations, Allergy/Immunology: Negative for hives, rash, and allergies, Endocrine: Negative for neck swelling, polydipsia, polyuria, polyphagia, and marked weight changes, Hematologic/Lymphatic: Negative for swollen nodes, abnormal bleeding, and unusual bruising, 12:57 Abdomen/GI: Positive for abdominal pain, constipation, abdominal cramps, Exam: 12:57 Constitutional: This is a well developed, well nourished patient who is awake, alert, nnamdi and in no acute distress. Head/Face: Normocephalic, atraumatic. Eyes: Pupils equal round and reactive to light, extra-ocular motions intact. Lids and lashes normal. Conjunctiva and sclera are non-icteric and not injected. Cornea within normal limits. Periorbital areas with no swelling, redness, or edema. ENT: Nares patent. No nasal discharge, no septal abnormalities noted. Tympanic membranes are normal and external auditory canals are clear. Oropharynx with no redness, swelling, or masses, exudates, or evidence of obstruction, uvula midline. Mucous membranes moist. Neck: Trachea midline, no thyromegaly or masses palpated, and no cervical lymphadenopathy. Supple, full range of motion without nuchal rigidity, or vertebral point tenderness. No Meningismus. Chest/axilla: Normal chest wall appearance and motion. Nontender with no deformity. No lesions are appreciated. Cardiovascular: Regular rate and rhythm with a normal S1 and S2. No gallops, murmurs, or rubs. Normal PMI, no JVD. No pulse deficits. Respiratory: Lungs have equal breath sounds bilaterally, clear to auscultation and percussion. No rales, rhonchi or wheezes noted. No increased work of breathing, no retractions or nasal flaring. Abdomen/GI: Soft, non-tender, with normal bowel sounds. No distension or tympany. No guarding or rebound. No evidence of tenderness throughout. Back: No spinal tenderness. No costovertebral tenderness. Full range of motion. Male : Normal genitalia with no discharge or lesions. Skin: Warm, dry with normal turgor. Normal color with no rashes, no lesions, and no evidence of cellulitis. MS/ Extremity: Pulses equal, no cyanosis. Neurovascular intact. Full, normal range of motion., bilateral aka Neuro: Awake and alert, GCS 15, oriented to person, place, time, and situation. Cranial nerves II-XII grossly intact. Motor strength 5/5 in all extremities. Sensory grossly intact. Cerebellar exam normal. Normal gait. Psych: Awake, alert, with orientation to person, place and time. Behavior, mood, and affect are within normal limits. Vital Signs: 10:20 BP 129 / 81; Pulse 80; Resp 18; Temp 98.1; Pulse Ox 100% ; Weight 68.95 kg; Height 5 iw ft. 10 in. ; Pain 2/10; 10:20 Body Mass Index 21.81 (68.95 kg, 177.8 cm) iw 10:20 Pain Scale: Adult iw MDM: 09:51 Medical Screening Exam initiated [facility] 12:58 Data reviewed: vital signs, nurses notes, lab test result(s), urinalysis. Test nnamdi considered but Not performed: Labs: no labs , no ct. Care significantly affected by the following chronic conditions: none. 08/27 09:53 Order name: Urinalysis w/ reflexes; Complete Time: 12:57 nnamdi Administered Medications: 13:31 Drug: Ondansetron Oral Disintegrating Tablet Oral Disintegrating Tablet 4 mg PO once iw Route: PO; 13:45 Follow up: Response: No adverse reaction iw Disposition Summary: 08/27/24 13:00 Discharge Ordered Notes: Location: Home nnamdi Problem: new nnamdi Symptoms: have improved nnamdi Condition: Stable nnamdi Diagnosis - Constipation nnamdi - GI Bleed/ Gastrointestinal hemorrhage, unspecified - lower nnamdi Followup: nnamdi - With: Private Physician - When: 2 - 3 days - Reason: Recheck today's complaints, Continuance of care, Re-evaluation by your physician Followup: nnamdi - With: Jarred Nava MD - When: 2 - 3 days - Reason: Recheck today's complaints, Re-evaluation by your physician Discharge Instructions: - Discharge Summary Sheet nnamdi - Constipation, Adult nnamdi - Gastrointestinal Bleeding nnamdi - Rectal Bleeding nnamdi - Constipation, Adult, [facility] Forms: - Medication Reconciliation Form nnamdi - Antibiotic Education nnamdi - Prescription Opioid Use nnamdi - Patient Portal Instructions nnamdi - Leadership Thank You Letter [facility] Prescriptions: - Miralax 17 gram Oral powder in packet - take 1 packet ORAL route every 12 hours prn; 14 packet; Refills: 0, Product nnamdi Selection Permitted Signatures: Dispatcher [employer] Giovany Amado MD MD cha Williams, Irene, RN RN iw
--- NOTE | 2024-08-27 13:01 | ER ---
Nurse's Notes [facility] Name: Eduardo Mullins Age: 24 yrs Sex: Male : 2000 Arrival Date: 08/27/2024 Time: 09:45 Bed DX2 Private MD: Diagnosis: Constipation;GI Bleed/ Gastrointestinal hemorrhage, unspecified-lower Presentation: 08/27 10:20 Chief complaint: Patient states: today he was light headed and his BP was high and he iw vomited . He also had a really sharp pain in RLQ X 4 -5 day. Coronavirus screen: At this time, the client does not indicate any symptoms associated with coronavirus-19. Ebola Screen: No symptoms or risks identified at this time. Initial Sepsis Screen: Does the patient meet any 2 criteria? No. Patient's initial sepsis screen is negative. Does the patient have a suspected source of infection? No. Patient's initial sepsis screen is negative. Risk Assessment: Do you want to hurt yourself or someone else? Patient reports no desire to harm self or others. Onset of symptoms was August 27, 2024. 10:20 Method Of Arrival: Ambulatory iw 10:20 Acuity: LEXX 3 iw Triage Assessment: 10:22 General: Appears in no apparent distress. Behavior is calm, cooperative. Pain: iw Complains of pain in right lower quadrant. GI: Reports lower abdominal pain, nausea, vomiting. Historical: - Allergies: 10:22 No Known Allergies; iw - Home Meds: 10:22 None [Active]; iw - PMHx: 10:22 None; iw - PSHx: 10:22 None; iw - Immunization history:: Adult Immunizations. - Infectious Disease History:: Denies. - Social history:: Smoking status: Patient denies any tobacco usage or history of. Screenin:31 [facility] ED Fall Risk Assessment (Adult) History of falling in the last 3 months, iw including since admission No falls in past 3 months (0 pts) Confusion or Disorientation No (0 pts) Intoxicated or Sedated No (0 pts) Impaired Gait No (0 pts) Mobility Assist Device Used No (0 pt) Altered Elimination No (0 pt) Score/Fall Risk Level 0 - 2 = Low Risk Oriented to surroundings, Maintained a safe environment. Abuse screen: Denies threats or abuse. Denies injuries from another. Nutritional screening: No deficits noted. Tuberculosis screening: No symptoms or risk factors identified. Assessment: 13:00 General: Appears in no apparent distress. Behavior is calm, cooperative. Pain: Denies iw pain. Neuro: Level of Consciousness is awake, alert, obeys commands, Oriented to person, place, time, situation, Moves all extremities. Full function. Cardiovascular: Patient's skin is warm and dry. Respiratory: Respiratory effort is even, unlabored, Respiratory pattern is regular, symmetrical. GI: Abdomen is flat, non-distended. Derm: Skin is intact, is healthy with good turgor. Musculoskeletal: Range of motion: intact in all extremities. Vital Signs: 10:20 BP 129 / 81; Pulse 80; Resp 18; Temp 98.1; Pulse Ox 100% ; Weight 68.95 kg; Height 5 iw ft. 10 in. ; Pain 2/10; 10:20 Body Mass Index 21.81 (68.95 kg, 177.8 cm) iw 10:20 Pain Scale: Adult iw ED Course: 09:47 Patient arrived in ED. mr 09:51 Giovany Dueñas MD is Attending Physician. [facility] 10:20 Triage completed. iw 10:22 Arm band placed on. iw 12:06 Urinalysis w/ reflexes Sent. zm 12:30 Loreto Wang, MERCEDEZ is Primary Nurse. iw 13:00 Jarred Nava MD is Referral Physician. [facility] 13:00 Patient has correct armband on for positive identification. Provided Education on: . iw 13:31 No provider procedures requiring assistance completed. Patient did not have IV access iw during this emergency room visit. Administered Medications: 13:31 Drug: Ondansetron Oral Disintegrating Tablet Oral Disintegrating Tablet 4 mg PO once iw Route: PO; 13:45 Follow up: Response: No adverse reaction iw Medication: 13:00 VIS not applicable for this client. iw Outcome: 13:00 Discharge ordered by . nnamdi 13:31 Discharged to home ambulatory, with family, iw 13:31 Condition: good 13:31 Discharge instructions given to patient, family, Instructed on discharge instructions, follow up and referral plans. medication usage, Demonstrated understanding of instructions, follow-up care, medications, Prescriptions given X 1, 13:32 Patient left the ED. iw Signatures: Giovany Dueñas MD MD cha Rivera, Mary, Reg Reg Loreto Griffiths, RN RN Genesis Carr Corrections: (The following items were deleted from the chart) 10:22 10:20 Chief complaint: Patient states: today he was light headed and his BP was high iw and he vomited iw
[2024-08-27] MEDS ORDERED: ONDANSETRON 4 MG (ODT) TAB ONE (13:27)
[2024-08-27 13:54] VITALS: BP 129/81; TEMP 98.1; O2SAT 100
== END 2024-08-27 13:32 | disposition home or self-care (01) ==
LOC: ER 09:45
DX: K59.00 Constipation, unspecified (principal); K92.2 Gastrointestinal hemorrhage, unspecified
CPT/HCPCS: 81003; 99283; Q0162